=== PATIENT | female | born 1940 ===

== ENCOUNTER 2017-02-20 12:10 | Emergency (ER) | payer MEDICARE, MEDICAID ==
[2017-02-20 12:12] VITALS: BMI 25.2
[2017-02-20 12:30] VITALS: O2SAT 100
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
[2017-02-20 14:20] LABS: BASO % 0.5 % (0.0-2.0); EOS # 0.2 K/uL (0.0-0.7); EOS % 2.7 % (0.0-4.0); HEMATOCRIT 29.3 % (34.0-47.0); LYMPH # 2.8 K/uL (1.0-4.3); LYMPH % 35.3 % (20.0-40.0); MEAN CORPUSCULAR HEMOGLOBIN 29.4 pg (27.0-31.0); MEAN CORPUSCULAR HGB CONC 33.4 g/dL (33.0-37.0); MEAN PLATELET VOLUME 7.2 fL (7.2-11.7); MONO # 0.9 K/uL (0.0-0.8); MONO % 11.3 % (0.0-10.0); NRBC % 0.1 % (0.0-2.0); WHITE BLOOD COUNT 7.8 K/uL (4.8-10.8)
[2017-02-20 14:42] LABS: ALCOHOL SERUM < 10 mg/dl (0-10); CALCIUM 8.3 mg/dl (8.6-10.4); GFR AFRICAN-AMERICAN > 60; GLUCOSE,RANDOM 80 mg/dL (65-105)
[2017-02-20 14:45] LABS: ALB/GLOB RATIO 1.3 (1.0-2.1); ALKALINE PHOSPHATASE 107 U/L (38-126); ALT/SGPT < 6 U/L (9-52); AST/SGOT 34 U/L (14-36); BLOOD UREA NITROGEN 13 mg/dL (7-17); CARBON DIOXIDE 22 mmol/L (22-30); CHLORIDE 101 mmol/L (98-107); POTASSIUM 5.1 mmol/L (3.6-5.2); SODIUM 131 mmol/L (132-148); TOTAL PROTEIN 6.6 g/dL (6.3-8.3)
[2017-02-20 15:03] VITALS: BP 160/54; PULSE 63; RESP 19; TEMP 97.9
--- NOTE | 2017-02-20 15:16 | RAD ---
PROCEDURE: CHEST RADIOGRAPH, 1 VIEW HISTORY: AMS COMPARISON: None available. FINDINGS: LUNGS: Hypoventilation and large body habitus limiting evaluation. No gross consolidation. PLEURA: No pneumothorax or right pleural fluid seen. Extreme left costophrenic angle not visually included CARDIOVASCULAR: Cardiomegaly. Central pulmonary vascular mild congestion possible-chronicity unknown atherosclerotic aortic knob calcification OSSEOUS STRUCTURES: Bilateral shoulder arthrosis. Thoracic spondylosis VISUALIZED UPPER ABDOMEN: Normal. OTHER FINDINGS: Apparent left cervical level surgical clips and possible calcification -correlate clinically IMPRESSION: No pulmonary infiltrate. Cardiomegaly. Central pulmonary vascular congestion - possible
--- NOTE | 2017-02-21 23:32 | CARD ---
APPROVED REPORT EKG Measurement Heart [id number] <Conclusion> Sinus rhythm with 1st degree AV block Otherwise normal ECG
== END 2017-02-20 15:30 | disposition home or self-care (01) ==
LOC: C.ER 12:10
DX: F03.90 Unspecified dementia, unspecified severity, without behavioral disturbance, psychotic disturbance, mood disturbance, and anxiety (principal)
CPT/HCPCS: 71010; 80053; 84484; 85025; 93005; 99284; G0480

== ENCOUNTER 2017-06-05 22:14 | Inpatient (IN) | payer MEDICARE, MEDICAID ==
[2017-06-05 22:14] VITALS: BMI 25.2
--- NOTE | 2017-06-05 22:30 | C.PDOC ---
History Of Present Illness 76 y/o female brought in by ambulance for respiratory distress, however initially call was placed due to seizure activity. When EMS arrived, O2 sat was 71% on room air, and patient was placed on bipap. On arrival to the ED patient does not appear post-ictal and did not receive any treatment in the field due to no IV access. Patient currently on bipap with O2 sat at 98-99%. She is awake , alert, oriented x3 but does not recall what happened prior to EMS arriving. No obvious signs of injury or trauma. 11:20 PM pt's at bedside. States that pt has a long history of seizures and dementia. As she was watching tv, She was "arguing with someone- hallucination) and then proceeded to have a generalized tonic clonic seizure, lasting a few seconds Time Seen by Provider: 06/05/17 22:29 Chief Complaint (Nursing): Shortness Of Breath History Per: Patient, EMS History/Exam Limitations: clinical condition Onset/Duration Of Symptoms: Mins Current Symptoms Are (Timing): Still Present Initiating Event: Emotionaly Upset, Other Current Respiratory Medications: See Home Med List Severity: Severe Pain Scale Rating Of: 9 Associated Symptoms: Ankle/Leg Swelling Reports Recently: Treated By A Physician Recent travel outside of the [place]: No Additional History Per: EMS Past Medical History Reviewed: Historical Data, Nursing Documentation, Vital Signs Vital Signs: Last Vital Signs Temp 97.9 F 06/06/17 00:24 Pulse 55 L 06/06/17 00:24 Resp 18 06/06/17 00:24 BP 124/47 L 06/06/17 00:24 Pulse Ox 100 06/06/17 00:24 - Medical History PMH: CVA, Dementia, HTN, Hypothyroidism Family History: States: No Known Family Hx - Social History Hx Tobacco Use: No Hx Alcohol Use: No Hx Substance Use: No - Immunization History Hx Tetanus Toxoid Vaccination: No Hx Influenza Vaccination: No Hx Pneumococcal Vaccination: No Review Of Systems Review Of Systems: ROS cannot be obtained secondary to pt's inabilty to answer questions. Respiratory: Positive for: Other (respiratory distress) Neurological: Positive for: Seizures Physical Exam - Physical Exam Appears: In Acute Distress (respiratory distress) Skin: Warm, Dry Head: Normacephalic Eye(s): bilateral: Normal Inspection Nose: Normal Oral Mucosa: Moist Neck: Trachea Midline, No Midline Cervical Tenderness, No Paracervical Tenderness, Supple Chest: Symmetrical Cardiovascular: Rhythm Regular Respiratory: Rales (diffuse) Gastrointestinal/Abdominal: Soft, No Tenderness, No Distention Extremity: Pedal Edema (bilaterally), No Other (obvious signs of injury) Pulses: Left Dorsalis Pedis: Normal, Right Dorsalis Pedis: Normal Neurological/Psych: Oriented x3, Normal Speech ED Course And Treatment - Laboratory Results Result Diagrams: 06/05/17 22:49 06/05/17 22:49 ECG: Interpreted By Me, Viewed By Me ECG Rhythm: Sinus Rhythm (60), 1st Degree HB, Nonspecific Changes (unchanged from 02/20/17) O2 Sat by Pulse Oximetry: 99 (on bipap) Pulse Ox Interpretation: Normal - Radiology CXR: Interpreted by Me, Viewed By Me Progress Note: Ordered labs, EKG and CXR. Patient given 40 mg IV Lasix. Critical Care Time - Critical Care Note Total Time (in mins): 30 Documented critical care: time excludes all time spent performing seperately billable procedures. Disposition Discussed With DrStephani: Agustín Chu Comment: accepted the pt on his service and took over the care at 1AM Doctor Will See Patient In The: Hospital Counseled Patient/Family Regarding: Studies Performed, Diagnosis - Disposition Disposition: HOSPITALIZED Disposition Time: 22:29 Condition: FAIR Forms: [facility] ([place]) - POA Present On Arrival: Poor Glycemic Control - Clinical Impression Clinical Impression: Dyspnea, Respiratory distress, Dementia, Seizure - Scribe Statement The provider has reviewed the documentation as recorded by the Scribe (Hayley Chilel) Provider Attestation: All medical record entries made by the Scribe were at my direction and personally dictated by me. I have reviewed the chart and agree that the record accurately reflects my personal performance of the history, physical exam, medical decision making, and the department course for this patient. I have also personally directed, reviewed, and agree with the discharge instructions and disposition. Decision To Admit - Pt Status Changed To: Hospital Disposition Of: Inpatient - Admit Certification Admit to Inpatient:: After my assessment, the patient will require hospitalization for at least two midnights. This is because of the severity of symptoms shown, intensity of services needed, and/or the medical risk in this patient being treated as an outpatient. - InPatient: Physician Admission Certification: I certify that this patient requires 2 or more midnights of care for the following reason:: After my assessment, the patient will require hospitalization for at least two midnights. This is because of the severity of symptoms shown, intensity of services needed, and/or the medical risk in this patient being treated as an outpatient. - . Bed Request Type: Telemetry Admitting Physician: Agustín Chu Patient Diagnosis: Dyspnea, Respiratory distress, Dementia, Seizure
[2017-06-05 22:58] LABS: BASO % 0.3 % (0.0-2.0); EOS # 0.3 K/uL (0.0-0.7); EOS % 4.7 % (0.0-4.0); LYMPH # 1.9 K/uL (1.0-4.3); LYMPH % 26.7 % (20.0-40.0); MEAN CORPUSCULAR HEMOGLOBIN 27.9 pg (27.0-31.0); MEAN CORPUSCULAR HGB CONC 32.9 g/dL (33.0-37.0); MEAN PLATELET VOLUME 7.5 fL (7.2-11.7); MONO # 0.7 K/uL (0.0-0.8); MONO % 9.7 % (0.0-10.0); NEUT # 4.2 K/uL (1.8-7.0); NEUT % 58.6 % (50.0-75.0); RBC 3.24 Mil/uL (3.80-5.20); RED CELL DISTRIBUTION WIDTH 18.8 % (11.5-14.5); WHITE BLOOD COUNT 7.2 K/uL (4.8-10.8)
[2017-06-05 22:59] LABS: MEAN CELL VOLUME 84.8 fL (81.0-99.0)
[2017-06-05 23:02] LABS: ABG ALLEN TEST POS; ARTERIAL BLOOD GAS HCO3 26.2 mmol/L (21-28); ARTERIAL BLOOD GAS O2 SAT 99.4 % (95-98); ARTERIAL BLOOD GAS PCO2 49 mm/Hg (35-45); ARTERIAL BLOOD GAS PH 7.36 (7.35-7.45); ARTERIAL BLOOD GAS PO2 172 mm/Hg (80-100); ARTERIAL BLOOD GAS TCO2 29.2 mmol/L (22-28)
[2017-06-05 23:02] LABS: PROTHROMBIN TIME 11.3 SECONDS (9.7-12.2)
[2017-06-05 23:04] LABS: ALB/GLOB RATIO 1.2 (1.0-2.1); ALBUMIN 3.9 g/dL (3.5-5.0); ALT/SGPT 14 U/L (9-52); AST/SGOT 16 U/L (14-36); BLOOD UREA NITROGEN 14 mg/dL (7-17); CALCIUM 8.8 mg/dl (8.6-10.4); GFR AFRICAN-AMERICAN 53; GFR NON-AFRICAN AMERICAN 43
[2017-06-05 23:15] LABS: B-TYPE NATRIURETIC PEPTIDE 1080 pg/mL (0-900)
[2017-06-05 23:25] LABS: URINE BACTERIA RARE (<OCC); URINE BILIRUBIN NEGATIVE (NEGATIVE); URINE CLARITY Clear (Clear); URINE COLOR Yellow (YELLOW); URINE GLUCOSE (UA) NORMAL (Normal); URINE LEUKOCYTE ESTERASE NEG Leu/uL (Negative); URINE PROTEIN NEGATIVE (NEGATIVE); URINE UROBILINOGEN NORMAL mg/dL (0.2-1.0)
[2017-06-05 23:28] LABS: URINE BLOOD TRACE (NEGATIVE)
[2017-06-06] MEDS: Levothyroxine 75 MCG TAB PO SCH (05:34)
[2017-06-06 08:05] LABS: HEMOGLOBIN 8.6 g/dL (11.0-16.0); MEAN CELL VOLUME 83.8 fL (81.0-99.0); MEAN CORPUSCULAR HEMOGLOBIN 28.3 pg (27.0-31.0); MEAN CORPUSCULAR HGB CONC 33.7 g/dL (33.0-37.0); MEAN PLATELET VOLUME 7.6 fL (7.2-11.7); RBC 3.04 Mil/uL (3.80-5.20); WHITE BLOOD COUNT 9.1 K/uL (4.8-10.8)
--- NOTE | 2017-06-06 08:15 | RAD ---
Chest x-ray single frontal view History: Shortness of breath. Comparison: 02/20/2017 Findings: Mild venous congestion. Patchy bibasilar airspace opacities. Few scattered nodular densities in the mid to lower lung zones bilaterally. Cardiomegaly. Tortuous aorta. Calcification at the aortic knob. Degenerative changes in the spine and shoulders. Impression: Mild venous congestion. Patchy bibasilar airspace opacities. Few scattered nodular densities in the mid to lower lung zones bilaterally. Cardiomegaly. Tortuous aorta. Calcification at the aortic knob.
[2017-06-06 08:39] LABS: ALB/GLOB RATIO 1.1 (1.0-2.1); ALBUMIN 3.5 g/dL (3.5-5.0); CALCIUM 8.4 mg/dl (8.6-10.4)
[2017-06-06] MEDS: Pantoprazole 40 mg EC Tab PO SCH (09:49)
[2017-06-06] MEDS: Metoprolol Succinate 25 mg XL Tab PO SCH (09:49)
[2017-06-06] MEDS ORDERED: Losartan 12.5 MG TAB PO SCH (10:00)
[2017-06-06] MEDS ORDERED: QUEtiapine 12.5 MG TAB PO SCH (10:00)
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
--- NOTE | 2017-06-06 16:09 | CP.PCM.PN ---
Subjective - Date & Time of Evaluation Date of Evaluation: 06/06/17 Time of Evaluation: 13:00 Objective - Vital Signs/Intake and Output Vital Signs (last 24 hours): Temp Pulse Resp BP Pulse Ox 98.4 F 56 L 20 124/51 L 99 06/06/17 12:40 06/06/17 12:53 06/06/17 12:40 06/06/17 12:40 06/06/17 12:53 Intake and Output: 06/06/17 06/06/17 06:59 18:59 Intake Total 180 Output Total 1100 2600 Balance -1100 -2420 - Medications Medications: Current Medications Aspirin (Ecotrin) 81 mg PO DAILY [facility] Last Admin: 06/06/17 09:49 Dose: 81 mg Docusate Sodium (Colace) 100 mg PO BID [facility] Last Admin: 06/06/17 09:48 Dose: 100 mg Donepezil HCl (Aricept) 5 mg PO HS [facility] Furosemide (Lasix) 40 mg IVP DAILY [facility] Last Admin: 06/06/17 09:49 Dose: 40 mg Metronidazole (Flagyl) 500 mg in 100 mls @ 100 mls/hr IVPB Q8 [facility] PRN Reason: Protocol Ceftriaxone Sodium 1 gm/ (Sodium Chloride) 100 mls @ 100 mls/hr IVPB DAILY [facility] PRN Reason: Protocol Lamotrigine (Lamictal) 100 mg PO BID [facility] Last Admin: 06/06/17 09:49 Dose: 100 mg Levetiracetam (Keppra) 1,500 mg PO BID [facility] Last Admin: 06/06/17 09:49 Dose: 1,500 mg Levothyroxine Sodium (Synthroid) 75 mcg PO 0630 [facility] Last Admin: 06/06/17 05:34 Dose: 75 mcg Lorazepam (Ativan) 1 mg PO BID PRN PRN Reason: Anxiety Lorazepam (Ativan) 1 mg PO HS [facility] Losartan Potassium (Cozaar) 25 mg PO DAILY [facility] Last Admin: 06/06/17 11:23 Dose: 25 mg Metoprolol Succinate (Toprol Xl) 25 mg PO DAILY [facility] Last Admin: 06/06/17 09:49 Dose: 25 mg Pantoprazole Sodium (Protonix Ec Tab) 40 mg PO DAILY [facility] Last Admin: 06/06/17 09:49 Dose: 40 mg Paroxetine HCl (Paxil) 30 mg PO DAILY [facility] Last Admin: 06/06/17 09:45 Dose: 30 mg Quetiapine Fumarate (Seroquel) 25 mg PO Q12 [facility] Last Admin: 06/06/17 09:52 Dose: 25 mg Rosuvastatin Calcium (Crestor) 20 mg PO HS [facility] - Labs Labs: 06/06/17 07:55 06/06/17 07:55 PT 11.3 SECONDS (9.7-12.2) 06/05/17 22:49 INR 1.0 06/05/17 22:49 APTT 26 SECONDS (21-34) 06/05/17 22:49
[2017-06-06] MEDS: metroNIDAZOLE IV 500 mg/100 ml 500 MG/100 ML BAG IVPB SCH ×2 (17:40→21:53)
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
--- NOTE | 2017-06-07 00:45 | CON ---
DATE: CHIEF COMPLAINT AND REASON FOR CONSULTATION: The patient referred by Dr. Chu for evaluation and co-management. The patient has been complaining of anxiety, persistent visual hallucination, and insomnia. As reported by her of 50 years, the patient seems to be talking to somebody else. She is reported to be seeing her relatives, her mother and brother. HISTORY OF PRESENT ILLNESS: The patient is a 76-year-old female with history of dementia and seizure as well as recent CVA. The patient was groaning, respiratory distress. The patient was referred for evaluation as the patient has been having persistent visual hallucination, anxiety, and also history of seizures. On review of the chart, the patient was at [facility] before coming for subacute rehab recently and was taking some psych medications. According to the , the patient used to have one or two times a week of having these episodes and slight hallucinations, but the patient has been having it almost daily. The patient gets very restless at night fighting with and said he cannot sleep. She seems to be arguing with somebody, responding to internal stimuli. According to the , the patient is seeing her mother and brother and arguing with them. She has history of seizures. The patient is taking also Keppra 1500 mg twice a day and Lamictal for seizures, but the patient according to the without these high doses, she will have seizures. The patient is also on Seroquel for psychosis. PAST PSYCH HISTORY: History of dementia. PAST MEDICAL HISTORY: History of CVA, history of seizures, respiratory distress, dementia. DRUG AND ALCOHOL HISTORY: Denies any. ALLERGIES: NO KNOWN ALLERGIES. SOCIAL HISTORY: The patient lives with her for more than 50 years. LIST OF CURRENT MEDICATIONS: Aricept 5 mg daily. The patient was given 1 dose of Ativan. Colace, Cozaar, Crestor, Keppra 1500 mg twice a day, Lamictal 100 mg daily, Paxil 30 mg daily. The patient is on Seroquel 25 mg every 12 hours as well as metoprolol, Synthroid, and also Lasix. VITAL SIGNS: Temperature is 98.4, pulse rate 56, blood pressure is 124/51, respirations 20, oxygen saturation is 99%. REVIEW OF SYSTEMS: GENERAL: The patient is alert, verbal, irritable. She was fighting with her , anxious. She was given earlier Ativan. SKIN: No diaphoresis. HEENT: No headache or dizziness. NECK: Supple. RESPIRATORY: No dyspnea. CARDIOVASCULAR: No chest pain. GASTROINTESTINAL: No nausea or vomiting. EXTREMITIES: Moving extremities. MUSCULOSKELETAL: Feels weak. NEUROLOGIC: Alert with periods of confusion. GENITOURINARY: No dysuria. MENTAL STATUS EXAMINATION: An elderly female who looks stated age, who is about 5 feet 2 inches, weight is 157 pounds. Mood is irritable, anxious . Affect is reactive. Speech is spontaneous. Thought process, confused often. Thought content, has persistent visual hallucinations, seeing relatives, especially brother and mother and arguing with them. She is responding to internal stimuli. No suicidal or homicidal ideation. Attention and memory seem to be limited. Insight and judgment limited. Impulse control is guarded at this time. LABORATORY DATA: On review of her labs, the patient had an ABG done, oxygen saturation is 99.4, which is normal. BUN 18, creatinine is 1.1. potassium is 3.8, sodium is 142. TSH is 2.66. Folate is 14, B12 is 838. UA is basically negative. IMPRESSION: Dementia with psychosis with possible delirium, metabolic encephalopathy as well as history of seizures, dyspnea, respiratory distress, and cerebrovascular accident. PLAN AND RECOMMENDATION: The patient is seen, medications reviewed. Discussed with the patient and to readjust her meds. We will change the Aricept to 5 mg at bedtime. We have Ativan 1 mg p.o. b.i.d. p.r.n. for agitation. We will give one standing dose at night if she becomes restless at night. We will continue the Keppra 200 mg p.o. b.i.d. Also, Keppra can cause psychosis at high doses, especially it might exacerbate her dementia, the patient still has dementia. Continue Lamictal 100 mg p.o. b.i.d. Continue Paxil 30 mg daily and continue the Seroquel 25 mg every 12 hours for psychosis. We will monitor the patient's mental status. Continue treatment plan as outlined. Also, we are going to order a prolactin level. If the patient had seizure, her prolactin levels will be elevated. The rest of her labs are within normal limits. Mychal Huddleston MD [place] # [id number] [place]
--- NOTE | 2017-06-07 03:17 | CON ---
DATE: CARDIOLOGY CONSULT REASON FOR CONSULTATION: Shortness of breath. HISTORY OF PRESENT ILLNESS: The patient is a 76-year-old female who has history of seizure activity and history of dementia who was brought in by ambulance because of respiratory distress. The patient does not give any reliable information. The at the bedside, gives some information, but detailed medical history is not completely available as the patient was always admitted to [facility]. According to the , he saw his sitting on the couch having seizures with shortness of breath at the same time that lasted few minutes. There was no reported chest pain. According to the , the patient had no history of heart attack in the past. SOCIAL HISTORY: Nonsmoker. Nondrinker. She lives with her . MEDICATIONS: Aricept 5 mg at bedtime, Ativan 1 mg twice a day, Rocephin 1 gm intravenously daily, Colace 100 mg twice a day, Cozaar 25 mg daily, Crestor 20 mg once a day, aspirin 81 mg once a day, intravenous Flagyl 500 mg every 8 hours, Keppra 1.5 gm p.o. twice a day, Lamictal 100 mg p.o. twice a day, Lasix 40 mg intravenously daily, Paxil 30 mg once a day, Synthroid 75 mcg once a day, Seroquel 25 mg twice a day, Toprol XL 25 mg once a day. REVIEW OF SYSTEMS: No reported fall according to the . No reported tongue biting or urinary incontinence. No reported fever or chills. PHYSICAL EXAMINATION: GENERAL: The patient is an elderly female who does not appear to be in any distress. VITAL SIGNS: Blood pressure 124/51, heart rate 56, temperature 98.4, respirations 20. HEENT: Pale conjunctivae. CHEST: Diminished breath sounds bilaterally. HEART: S1 and S2 regular. ABDOMEN: Soft. EXTREMITIES: No edema. LABORATORY DATA: Today's SMA-7, sodium 142, potassium 3.8, chloride 97, CO2 of 29, glucose 85, BUN 18, creatinine 1.1. Pro-BNP is 1080. TSH level is 2.66. One set of troponin is negative. PT, PTT, and INR are within normal limits. Hemoglobin and hematocrit 8.6 and 25.5. White count and platelet count are within normal limits. Chest x-ray was unremarkable. EKG revealed sinus rhythm AV block. ASSESSMENT: 1, Witness seizure activity. 2. Rule out congestive heart failure. 3. Hypertension. 4. Anemia. RECOMMENDATIONS: Continue current p.r.n. oral Ativan for anxiety. Continue Crestor 20 mg once a day, Cozaar 25 mg once a day, Keppra at 1.5 gm p.o. twice a day, Lasix 40 mg intravenously once a day, Synthroid 75 mcg once a day. Obtain an echocardiogram as well as repeat EKG study. Viraj Dinero MD
[2017-06-07] MEDS: metroNIDAZOLE IV 500 mg/100 ml 500 MG/100 ML BAG IVPB SCH ×3 (06:11→21:20)
[2017-06-07] MEDS: Levothyroxine 75 MCG TAB PO SCH (06:11)
[2017-06-07] MEDS: Pantoprazole 40 mg EC Tab PO SCH (09:04)
[2017-06-07] MEDS: Metoprolol Succinate 25 mg XL Tab PO SCH (09:04)
--- NOTE | 2017-06-07 16:51 | CP.PCM.PN ---
Subjective - Date & Time of Evaluation Date of Evaluation: 06/07/17 Time of Evaluation: 09:00 - Subjective Subjective: Patient seen and examined at bedside. Patient's breathing is improved and she is now off BiPAP. notes that the patient may have trouble swallowing liquids and that a thickened diet was recommended previously at [facility]. Patient remains afebrile. Assessment and Plan: 1. Hypoxic respiratory failure - patient off BiPAP and breathing much improved - CXR /3: few patchy bibasilar airspace nodular densities, mild venous congestion, cardiomegaly - procalcitonin 06/06: <0.05 - BiPAP at night 2. Suspicion of aspiration pneumonia - CXR 4/3: few patchy bibasilar airspace nodular densities - PT/OT swallow evaluation - consider nectar thickened liquids Objective - Vital Signs/Intake and Output Vital Signs (last 24 hours): Temp Pulse Resp BP Pulse Ox 98.3 F 58 L 20 105/51 L 99 06/07/17 16:04 06/07/17 16:04 06/07/17 16:04 06/07/17 16:04 06/07/17 16:04 Intake and Output: 06/07/17 06/07/17 06:59 18:59 Intake Total 380 Output Total 700 1100 Balance -700 -720 - Medications Medications: Current Medications Aspirin (Ecotrin) 81 mg PO DAILY [facility] Last Admin: 06/07/17 09:04 Dose: 81 mg Docusate Sodium (Colace) 100 mg PO BID [facility] Last Admin: 06/07/17 09:04 Dose: 100 mg Donepezil HCl (Aricept) 5 mg PO [facility] Furosemide (Lasix) 40 mg IVP DAILY [facility] Last Admin: 06/07/17 09:00 Dose: 40 mg Metronidazole (Flagyl) 500 mg in 100 mls @ 100 mls/hr IVPB Q8 [facility]OEY PRN Reason: Protocol Last Admin: 06/07/17 13:26 Dose: 100 mls/hr Ceftriaxone Sodium 1 gm/ (Sodium Chloride) 100 mls @ 100 mls/hr IVPB DAILY [facility]OE[facility] PRN Reason: Protocol Last Admin: 06/07/17 09:04 Dose: 100 mls/hr Lamotrigine (Lamictal) 100 mg PO BID [facility] Last Admin: 06/07/17 09:04 Dose: 100 mg Levetiracetam (Keppra) 1,500 mg PO BID [facility] Last Admin: 06/07/17 09:04 Dose: 1,500 mg Levothyroxine Sodium (Synthroid) 75 mcg PO 0630 [facility] Last Admin: 06/07/17 06:11 Dose: 75 mcg Lorazepam (Ativan) 1 mg PO BID PRN PRN Reason: Anxiety Last Admin: 06/07/17 09:04 Dose: 1 mg Lorazepam (Ativan) 1 mg PO HS [facility] Last Admin: 06/06/17 21:55 Dose: 1 mg Losartan Potassium (Cozaar) 25 mg PO DAILY [facility] Last Admin: 06/07/17 09:04 Dose: 25 mg Pantoprazole Sodium (Protonix Ec Tab) 40 mg PO DAILY [facility] Last Admin: 06/07/17 09:04 Dose: 40 mg Paroxetine HCl (Paxil) 30 mg PO DAILY [facility] Last Admin: 06/07/17 09:04 Dose: 30 mg Quetiapine Fumarate (Seroquel) 25 mg PO Q12 [facility] Last Admin: 06/07/17 09:04 Dose: 25 mg Rosuvastatin Calcium (Crestor) 20 mg PO HS [facility] Last Admin: 06/06/17 21:53 Dose: 20 mg - Labs Labs: 06/06/17 07:55 06/06/17 07:55 PT 11.3 SECONDS (9.7-12.2) 06/05/17 22:49 INR 1.0 06/05/17 22:49 APTT 26 SECONDS (21-34) 06/05/17 22:49 Assessment and Plan (1) Dyspnea Status: Acute (2) Respiratory distress Status: Acute (3) Seizure Status: Acute
--- NOTE | 2017-06-07 19:24 | PN ---
DATE: SUBJECTIVE: The patient denies any chest pain. No reports of seizure activity. The patient sits upon a chair with the at the bedside. PHYSICAL EXAMINATION VITAL SIGNS: Blood pressure 149/64, heart rate 60, temperature 97.8, respirations 20. HEENT: Normocephalic. CHEST: Clear. HEART: S1 and S2 regular. EXTREMITIES: No edema. LABORATORY DATA: Today's blood sugar is 85. ASSESSMENT: 1. Seizure activity. 2. Congestive heart failure. 3. Hypertension. 4. Anemia. 5. Sinus bradycardia with prolonged QT interval. RECOMMENDATIONS: 1. Continue Coreg 25 mg once a day. 2. Aspirin 81 mg once a day. 3. Keppra 1.5 gm p.o. twice a day. 4. Lamictal 100 mg twice a day. 5. Pepcid 30 mg once daily. 6. Lasix 20 mg once a day. 6. Discontinue Toprol XL. Repeat 12-lead EKG. We will follow. Cardiac study was performed today. Viraj Dinero MD
--- NOTE | 2017-06-07 23:14 | CP.PCM.PN ---
Subjective - Date & Time of Evaluation Date of Evaluation: 06/07/17 Time of Evaluation: 17:30 - Subjective Subjective: Patient seen and examined at bedside. Patient's breathing is improved and she is now off BiPAP. notes that the patient may have trouble swallowing liquids and that a thickened diet was recommended previously at [facility]. Patient remains afebrile. Objective - Vital Signs/Intake and Output Vital Signs (last 24 hours): Temp Pulse Resp BP Pulse Ox 98.3 F 58 L 20 105/51 L 99 06/07/17 16:04 06/07/17 16:04 06/07/17 16:04 06/07/17 16:04 06/07/17 16:04 Intake and Output: 06/07/17 06/08/17 18:59 06:59 Intake Total 380 Output Total 1100 Balance -720 - Medications Medications: Current Medications Aspirin (Ecotrin) 81 mg PO DAILY [facility] Last Admin: 06/07/17 09:04 Dose: 81 mg Docusate Sodium (Colace) 100 mg PO BID [facility] Last Admin: 06/07/17 17:24 Dose: 100 mg Donepezil HCl (Aricept) 5 mg PO HS [facility] Last Admin: 06/07/17 21:16 Dose: 5 mg Furosemide (Lasix) 40 mg IVP DAILY [facility] Last Admin: 06/07/17 09:00 Dose: 40 mg Metronidazole (Flagyl) 500 mg in 100 mls @ 100 mls/hr IVPB Q8 ZOEY PRN Reason: Protocol Last Admin: 06/07/17 21:20 Dose: 100 mls/hr Ceftriaxone Sodium 1 gm/ (Sodium Chloride) 100 mls @ 100 mls/hr IVPB DAILY [facility] PRN Reason: Protocol Last Admin: 06/07/17 09:04 Dose: 100 mls/hr Lamotrigine (Lamictal) 100 mg PO BID [facility] Last Admin: 06/07/17 17:24 Dose: 100 mg Levetiracetam (Keppra) 1,500 mg PO BID [facility] Last Admin: 06/07/17 17:24 Dose: 1,500 mg Levothyroxine Sodium (Synthroid) 75 mcg PO 0630 [facility] Last Admin: 06/07/17 06:11 Dose: 75 mcg Lorazepam (Ativan) 1 mg PO BID PRN PRN Reason: Anxiety Last Admin: 06/07/17 09:04 Dose: 1 mg Lorazepam (Ativan) 1 mg PO HS [facility] Last Admin: 06/07/17 21:18 Dose: 1 mg Losartan Potassium (Cozaar) 25 mg PO DAILY [facility] Last Admin: 06/07/17 09:04 Dose: 25 mg Pantoprazole Sodium (Protonix Ec Tab) 40 mg PO DAILY [facility] Last Admin: 06/07/17 09:04 Dose: 40 mg Paroxetine HCl (Paxil) 30 mg PO DAILY [facility] Last Admin: 06/07/17 09:04 Dose: 30 mg Quetiapine Fumarate (Seroquel) 25 mg PO DAILY [facility] Quetiapine Fumarate (Seroquel) 50 mg PO HS [facility] Last Admin: 06/07/17 21:15 Dose: 50 mg Rosuvastatin Calcium (Crestor) 20 mg PO [facility] Last Admin: 06/07/17 21:15 Dose: 20 mg - Labs Labs: 06/06/17 07:55 06/06/17 07:55 PT 11.3 SECONDS (9.7-12.2) 06/05/17 22:49 INR 1.0 06/05/17 22:49 APTT 26 SECONDS (21-34) 06/05/17 22:49 - Constitutional Appears: No Acute Distress, Chronically Ill - Eye Exam Eye Exam: EOMI, Normal appearance, PERRL Pupil Exam: NORMAL ACCOMODATION, PERRL - Respiratory Exam Respiratory Exam: Clear to Ausculation Bilateral, NORMAL BREATHING PATTERN - Cardiovascular Exam Cardiovascular Exam: REGULAR RHYTHM, +S1, +S2. absent: Murmur - GI/Abdominal Exam GI & Abdominal Exam: Soft, Normal Bowel Sounds. absent: Tenderness - Rectal Exam Rectal Exam: Deferred Assessment and Plan (1) Dementia Status: Acute (2) Dyspnea Status: Acute (3) Respiratory distress Assessment & Plan: Assessment and Plan: 1. Hypoxic respiratory failure - patient off BiPAP and breathing much improved - CXR /3: few patchy bibasilar airspace nodular densities, mild venous congestion, cardiomegaly - procalcitonin 06/06: <0.05 - BiPAP at night 2. Suspicion of aspiration pneumonia - CXR /3: few patchy bibasilar airspace nodular densities - PT/OT swallow evaluation - consider nectar thickened liquids Status: Acute (4) Seizure Status: Acute
--- NOTE | 2017-06-08 00:39 | PN ---
DATE: SUBJECTIVE: The patient was seen. The patient has bouts of anxiety and agitation, continues to have visual hallucination. The patient states she saw her friend, Yung, as well as has seen her brother and mother. The patient seems to be responding to internal stimuli. The patient also did not sleep well at night, was agitated, was fighting with her . The patient uses multiple meds. Psych natarajan, Aricept, Ativan, Lamictal, Seroquel. Review of her labs, the patient's liver function tests are within normal limits. The patient had prolactin level ordered but still pending. Note, the patient is on high doses of Keppra 1500 twice a day, and in certain cases, high doses of Keppra can exacerbate psychosis, especially when patient is demented. We will try to see if the patient could be reevaluated again by Neurology, and reevaluate the patient's meds. The patient's insisted the patient is taking these meds to prevent seizure, however, the patient is having increasing psychotic symptoms which could be related to high dose of Keppra. The patient is also on Lamictal 100 mg b.i.d. REVIEW OF SYSTEMS: GENERAL: The patient is alert but still restless, seen in her room. SKIN: No diaphoresis. HEENT: No headache, no dizziness. NECK: Supple. RESPIRATORY: No dyspnea. CARDIOVASCULAR: No chest pain. GASTROINTESTINAL: The patient is eating with assistance. EXTREMITIES: Moving extremities. MUSCULOSKELETAL: Feels weak. NEURO: Alert with periods of confusion. GENITOURINARY: No dysuria. MENTAL STATUS EXAMINATION: Elderly female, who looks stated age, oriented x3, still has periods of confusion, is very anxious. Speech is spontaneous. Thought process forgetful. Thought content, the patient continues to have persistent visual hallucinations, seeing people and some relatives. She seems to be arguing with them, talking, responding to internal stimuli. No paranoia. No suicidal ideation. Attention and memory seem to be limited. Insight and judgment limited. Impulse control is guarded at this time. IMPRESSION: History of dementia as well as delirium, metabolic encephalopathy, history of seizure, stated history of dementia, psychosis, respiratory distress, cerebrovascular accident. PLAN AND RECOMMENDATION: The patient is seen, meds reviewed. Continue Ativan as ordered. Continue the Aricept at bedtime. We will change the Seroquel to 25 in the morning and 50 at bedtime and also continue the Paxil 30 mg daily. We will try to reconsult with Neurology concerning reevaluation of the patient's medication, especially the high doses of Keppra causing the hallucination. Mychal Huddleston MD MTDD
[2017-06-08] MEDS: Levothyroxine 75 MCG TAB PO SCH (05:51)
[2017-06-08] MEDS: metroNIDAZOLE IV 500 mg/100 ml 500 MG/100 ML BAG IVPB SCH ×3 (05:52→21:14)
--- NOTE | 2017-06-08 07:33 | CARD ---
APPROVED REPORT EXAM: Two-dimensional and M-mode echocardiogram with Doppler and color Doppler. Other Information Quality : GoodRhythm : INDICATION CVA/TIA Dyspnea Congestive Heart Failure RISK FACTORS Hypertension 2D DIMENSIONS IVSd1.3 (0.7-1.1cm)LVDd4.5 (3.9-5.9cm) PWd1.0 (0.7-1.1cm)LVDs2.6 (2.5-4.0cm) FS (%) 42.3 %LVEF (%)73.5 (>50%) M-Mode DIMENSIONS Left Atrium (MM)4.21 (2.5-4.0cm)IVSd1.02 (0.7-1.1cm) Aortic Root2.71 (2.2-3.7cm)LVDd5.15 (4.0-5.6cm) Aortic Cusp Exc.1.96 (1.5-2.0cm)PWd0.89 (0.7-1.1cm) FS (%) 39 %LVDs3.14 (2.0-3.8cm) LVEF (%)69 (>50%) Aortic Valve AI P 1/2 [id number] Mitral Valve MV E Lqsjabyk27.9cm/sMV A Jbivhxuo433.0cm/sE/A ratio0.8 TDI E/Lateral E'0.0E/Medial E'0.0 Tricuspid Valve TR Peak [id number]/sTR Peak Gr.[id number] LEFT VENTRICLE The left ventricle is normal size. There is normal left ventricular wall thickness. The left ventricular function is normal. The left ventricular ejection fraction is within the normal range. There is normal LV segmental wall motion. Transmitral Doppler flow pattern is abnormal. RIGHT VENTRICLE The right ventricle is normal size. ATRIA The left atrium is mildly dilated. The right atrium size is normal. AORTIC VALVE There is mild aortic regurgitation. MITRAL VALVE Mitral regurgitation is mild. TRICUSPID VALVE There is mild tricuspid regurgitation. <Conclusion> Normal LV systolic function. Diastolic dysfunction. Midly dilated LA. Mild MR. Mild TR. Mild AR.
[2017-06-08 07:36] LABS: BASO % 0.4 % (0.0-2.0); EOS # 0.4 K/uL (0.0-0.7); EOS % 5.4 % (0.0-4.0); HEMOGLOBIN 9.3 g/dL (11.0-16.0); LYMPH # 2.1 K/uL (1.0-4.3); LYMPH % 26.9 % (20.0-40.0); MEAN CELL VOLUME 83.7 fL (81.0-99.0); MEAN CORPUSCULAR HEMOGLOBIN 28.2 pg (27.0-31.0); MEAN CORPUSCULAR HGB CONC 33.7 g/dL (33.0-37.0); MEAN PLATELET VOLUME 7.6 fL (7.2-11.7); MONO # 0.8 K/uL (0.0-0.8); MONO % 10.4 % (0.0-10.0); NEUT # 4.4 K/uL (1.8-7.0); NEUT % 56.9 % (50.0-75.0); NRBC % 0.1 % (0.0-2.0); RBC 3.31 Mil/uL (3.80-5.20); RED CELL DISTRIBUTION WIDTH 18.6 % (11.5-14.5); WHITE BLOOD COUNT 7.8 K/uL (4.8-10.8)
[2017-06-08 07:48] LABS: ALB/GLOB RATIO 1.2 (1.0-2.1); ALBUMIN 3.6 g/dL (3.5-5.0); ALT/SGPT 21 U/L (9-52); AST/SGOT 44 U/L (14-36); BLOOD UREA NITROGEN 21 mg/dL (7-17); CALCIUM 8.2 mg/dl (8.6-10.4); GFR AFRICAN-AMERICAN > 60; GFR NON-AFRICAN AMERICAN 54
--- NOTE | 2017-06-08 07:50 | CARD ---
APPROVED REPORT EKG Measurement Heart [id number] <Conclusion> Sinus bradycardia with 1st degree AV block Prolonged QT Abnormal ECG
[2017-06-08] MEDS: Pantoprazole 40 mg EC Tab PO SCH (10:33)
--- NOTE | 2017-06-08 10:44 | CARD ---
APPROVED REPORT EKG Measurement Heart [id number] [place] [id number] [id number] <Conclusion> Sinus rhythm with 1st degree AV block Otherwise normal ECG
--- NOTE | 2017-06-08 13:53 | CP.PCM.CON ---
History of Present Illness - History of Present Illness History of Present Illness: 76 yr old woman with a history of epilepsy and dementia, who came to the hospital with several seizures, and is now stable, having been laoded with antiepileptic medications. Miss Mcleod says that she does not have an aura, but rather has generalized seizures and was brought to the ambulance for respiratory distress. As per chart: Per , patient was watching tv and possibly hallucinating before having a generalized tonic clonic seizure of a few seconds. Patient was saturating at 71% on room air in the field and was placed on bipap. In the ED, patient was not post-ictal and on bipap saturating at 98-99%. Patient was resting with BiPAP, and her provided most of the history. Her reports that the patient had a "needle" placed her in neck and he noticed that it was displaced before the patient's seizure-like episode. PMHx: dementia, seizures, hypothyroid, HTN Allergies: NKDA SH: Lives with on exam: Patient knows where she is and her name but is not oriented to place or time. EOMI. no facial droop. Rest of neuro exam is normal. Past Patient History - Past Medical History & Family History Past Medical History?: Yes - Past Social History Smoking Status: Never Smoked - CARDIAC Hx Hypertension: Yes - NEUROLOGICAL HX Cerebrovascular Accident: Yes - ENDOCRINE/METABOLIC Hx Hypothyroidism: Yes - PSYCHIATRIC Hx Substance Use: No Meds Allergies/Adverse Reactions: Allergies Allergy/AdvReac Type Severity Reaction Status Date / Time No Known Allergies Allergy Verified 06/05/17 22:20 - Medications Medications: Current Medications Aspirin (Ecotrin) 81 mg PO DAILY [facility] Last Admin: 06/08/17 10:32 Dose: 81 mg Docusate Sodium (Colace) 100 mg PO BID [facility] Last Admin: 06/08/17 10:33 Dose: 100 mg Donepezil HCl (Aricept) 5 mg PO HS [facility] Last Admin: 06/07/17 21:16 Dose: 5 mg Furosemide (Lasix) 40 mg IVP DAILY [facility] Last Admin: 06/08/17 10:33 Dose: 40 mg Metronidazole (Flagyl) 500 mg in 100 mls @ 100 mls/hr IVPB Q8 [facility] PRN Reason: Protocol Last Admin: 06/08/17 05:52 Dose: 100 mls/hr Ceftriaxone Sodium 1 gm/ (Sodium Chloride) 100 mls @ 100 mls/hr IVPB DAILY [facility] PRN Reason: Protocol Last Admin: 06/08/17 10:31 Dose: 100 mls/hr Lamotrigine (Lamictal) 100 mg PO BID [facility] Last Admin: 06/08/17 10:32 Dose: 100 mg Levetiracetam (Keppra) 1,500 mg PO BID [facility] Last Admin: 06/08/17 10:32 Dose: 1,500 mg Levothyroxine Sodium (Synthroid) 75 mcg PO 0630 [facility] Last Admin: 06/08/17 05:51 Dose: 75 mcg Lorazepam (Ativan) 1 mg PO BID PRN PRN Reason: Anxiety Last Admin: 06/08/17 11:14 Dose: 1 mg Lorazepam (Ativan) 1 mg PO HS [facility] Last Admin: 06/07/17 21:18 Dose: 1 mg Losartan Potassium (Cozaar) 25 mg PO DAILY [facility] Last Admin: 06/08/17 10:33 Dose: 25 mg Pantoprazole Sodium (Protonix Ec Tab) 40 mg PO DAILY [facility] Last Admin: 06/08/17 10:33 Dose: 40 mg Paroxetine HCl (Paxil) 30 mg PO DAILY [facility] Last Admin: 06/08/17 10:34 Dose: 30 mg Quetiapine Fumarate (Seroquel) 25 mg PO DAILY [facility] Last Admin: 06/08/17 10:34 Dose: 25 mg Quetiapine Fumarate (Seroquel) 50 mg PO HS [facility] Last Admin: 06/07/17 21:15 Dose: 50 mg Rosuvastatin Calcium (Crestor) 20 mg PO HS [facility] Last Admin: 06/07/17 21:15 Dose: 20 mg Results - Vital Signs Recent Vital Signs: Last Vital Signs Temp 97.8 F 06/08/17 07:24 Pulse 62 06/08/17 07:24 Resp 20 06/08/17 07:24 BP 147/75 06/08/17 10:33 Pulse Ox 100 06/08/17 07:24 - Labs Result Diagrams: 06/10/17 07:38 06/10/17 07:38 Labs: Laboratory Results - last 24 hr 06/08/17 06/08/17 07:23 07:23 WBC 7.8 RBC 3.31 L Hgb 9.3 L Hct 27.7 L MCV 83.7 MCH 28.2 MCHC 33.7 RDW 18.6 H Plt Count 227 MPV 7.6 Neut % (Auto) 56.9 Lymph % (Auto) 26.9 [place] % (Auto) 10.4 H Eos % (Auto) 5.4 H Baso % (Auto) 0.4 Neut # (Auto) 4.4 Lymph # (Auto) 2.1 [place] # (Auto) 0.8 Eos # (Auto) 0.4 Baso # (Auto) 0.0 Sodium 139 Potassium 3.7 Chloride 100 Carbon Dioxide 29 Anion Gap 14 BUN 21 H Creatinine 1.0 Est GFR ( Amer) > 60 Est GFR (Non-Af Amer) 54 Random Glucose 92 Calcium 8.2 L Total Bilirubin 0.4 AST 44 H D ALT 21 Alkaline Phosphatase 88 Total Protein 6.6 Albumin 3.6 Globulin 3.1 Albumin/Globulin Ratio 1.2 - Imaging and Cardiology CT scan - head Status: Image reviewed by me, Report reviewed by me (MRi Brain: shows mesial temporal sclerosis,right sided. 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 I feel that she needs another medications and will add increased dosage of keppra in addition to lamictal. plan: 1. Continue lamictal, and keppra at 1500 mg bid. 2. EEG Thank you for this interesting consult. DR. Campos
--- NOTE | 2017-06-08 15:26 | MRI ---
PROCEDURE: MRI of the brain dated 06/08/2017 HISTORY: New onset seizure COMPARISON: No prior studies available comparison TECHNIQUE: Multiplanar, multisequence MR images of the brain were obtained without intravenous contrast enhancement. FINDINGS: HEMORRHAGE: No acute parenchymal, subarachnoid or extra-axial hemorrhage. No evidence of hemosiderin deposition identified on gradient echo weighted sequence. DWI: No evidence of an acute or early subacute infarction seen on diffusion imaging. . BRAIN PARENCHYMA: Moderate diffuse/ confluent chronic periventricular white matter ischemic changes seen extending peripherally into the deep and subcortical regions of both cerebral hemispheres. Multiple more discrete chronic appearing lacunar type infarcts scattered about the deep and subcortical white matter as well as both basal nuclei and brainstem. None of these changes exhibit restricted diffusion. . Note also made of what appears represent increased the signal in the right hippocampal region rated there also appears to be localized dilatation of the right temporal horn. 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 . Clinical correlation recommended. VENTRICLES: No obstructive hydrocephalus. CRANIUM: Calvarium appears grossly unremarkable ORBITS: Changes of bilateral cataract surgery are present PARANASAL SINUSES/MASTOIDS: Frontal sinuses appears underpneumatized/ hypoplastic. Remaining visualized paranasal air complexes well-developed and currently well-aerated. Partial opacification of the right mastoid air complex. VASCULAR SYSTEM: Visualized major vascular flow voids at skull base patent. OTHER FINDINGS: None. IMPRESSION: Study is limited by motion artifact. No acute intracranial hemorrhage or infarct. Moderate to significant diffuse/ confluent chronic white matter ischemic changes with scattered basal nuclei and brainstem ischemic changes. 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
--- NOTE | 2017-06-08 15:33 | CP.PCM.PN ---
Subjective - Date & Time of Evaluation Date of Evaluation: 06/08/17 Time of Evaluation: 09:10 - Subjective Subjective: Patient seen and examined at bedside with present. Patient's breathing is improved and she is now off BiPAP. No acute events reported. Patient remains afebrile. Patient still has crackles. Objective - Vital Signs/Intake and Output Vital Signs (last 24 hours): Temp Pulse Resp BP Pulse Ox 97.4 F L 60 20 104/63 96 06/08/17 15:00 06/08/17 15:00 06/08/17 15:00 06/08/17 15:00 06/08/17 15:00 - Medications Medications: Current Medications Aspirin (Ecotrin) 81 mg PO DAILY [facility] Last Admin: 06/08/17 10:32 Dose: 81 mg Docusate Sodium (Colace) 100 mg PO BID [facility] Last Admin: 06/08/17 10:33 Dose: 100 mg Donepezil HCl (Aricept) 5 mg PO HS [facility] Last Admin: 06/07/17 21:16 Dose: 5 mg Furosemide (Lasix) 40 mg IVP DAILY [facility] Last Admin: 06/08/17 10:33 Dose: 40 mg Metronidazole (Flagyl) 500 mg in 100 mls @ 100 mls/hr IVPB Q8 [facility] PRN Reason: Protocol Last Admin: 06/08/17 14:44 Dose: 100 mls/hr Ceftriaxone Sodium 1 gm/ (Sodium Chloride) 100 mls @ 100 mls/hr IVPB DAILY [facility] PRN Reason: Protocol Last Admin: 06/08/17 10:31 Dose: 100 mls/hr Lamotrigine (Lamictal) 100 mg PO BID [facility] Last Admin: 06/08/17 10:32 Dose: 100 mg Levetiracetam (Keppra) 1,500 mg PO BID [facility] Last Admin: 06/08/17 10:32 Dose: 1,500 mg Levothyroxine Sodium (Synthroid) 75 mcg PO 0630 [facility] Last Admin: 06/08/17 05:51 Dose: 75 mcg Lorazepam (Ativan) 1 mg PO BID PRN PRN Reason: Anxiety Last Admin: 06/08/17 11:14 Dose: 1 mg Lorazepam (Ativan) 1 mg PO HS [facility] Last Admin: 06/07/17 21:18 Dose: 1 mg Losartan Potassium (Cozaar) 25 mg PO DAILY [facility] Last Admin: 06/08/17 10:33 Dose: 25 mg Pantoprazole Sodium (Protonix Ec Tab) 40 mg PO DAILY [facility] Last Admin: 06/08/17 10:33 Dose: 40 mg Paroxetine HCl (Paxil) 30 mg PO DAILY [facility] Last Admin: 06/08/17 10:34 Dose: 30 mg Quetiapine Fumarate (Seroquel) 25 mg PO DAILY [facility] Last Admin: 06/08/17 10:34 Dose: 25 mg Quetiapine Fumarate (Seroquel) 50 mg PO HS [facility] Last Admin: 06/07/17 21:15 Dose: 50 mg Rosuvastatin Calcium (Crestor) 20 mg PO [facility] Last Admin: 06/07/17 21:15 Dose: 20 mg - Labs Labs: 06/08/17 07:23 06/08/17 07:23 PT 11.3 SECONDS (9.7-12.2) 06/05/17 22:49 INR 1.0 06/05/17 22:49 APTT 26 SECONDS (21-34) 06/05/17 22:49 - Head Exam Head Exam: ATRAUMATIC, NORMOCEPHALIC - ENT Exam ENT Exam: Mucous Membranes Moist - Neck Exam Neck Exam: Normal Inspection - Respiratory Exam Respiratory Exam: Rales - Cardiovascular Exam Cardiovascular Exam: REGULAR RHYTHM Assessment and Plan (1) Dyspnea Assessment & Plan: clinical impression much improved Patient is off BiPAP Continue antibiotics Followup chest x-ray Continue diuretics Status: Acute (2) Respiratory distress Status: Acute (3) Seizure Status: Acute
--- NOTE | 2017-06-08 19:21 | PN ---
DATE: SUBJECTIVE: The patient is seen. The patient is seen with her . The patient's meds were readjusted. She was also referred to be seen by Neurology to review her seizure medications. The patient is on high dose of Keppra which could be contributory to her persistent psychosis. She still reports she is seeing her friend and some other relatives, but she is sleeping better. Her Seroquel dose was readjusted and was given Ativan. PHYSICAL EXAMINATION: VITAL SIGNS: Temperature is 97.4, pulse rate is 60, blood pressure is 104/62, respirations 20, oxygen saturation is 96%. REVIEW OF SYSTEMS: GENERAL: The patient is alert, oriented x2, seen in her room sitting, seen with her , wants to take her home once she is medically stable. SKIN: No diaphoresis. HEENT: No headache. No dizziness. NECK: Supple. RESPIRATORY: No dyspnea. CARDIOVASCULAR: No chest pain. GASTROINTESTINAL: No nausea. No vomiting. EXTREMITIES: The patient moves extremities. MUSCULOSKELETAL: Feels weak. NEUROLOGIC: Alert with periods of confusion. GENITOURINARY: No dysuria. MENTAL STATUS EXAMINATION: An elderly female who looks stated age, oriented x2, still has periods of confusion. Mood is dysphoric. Affect is restricted. Thought process, forgetful. Thought content, continues to have intermittent visual hallucinations, seeing her friend and some relatives, and at times arguing with them. The patient seems to be responding to internal stimuli; but today she is much better than the last few days. She is sleeping much better. Has been compliant with meds. Attention and memory still limited. Insight and judgment limited. Impulse control is improving at this time. IMPRESSION: History of dementia, delirium, metabolic encephalopathy, psychosis, history of cerebrovascular accident, seizure, history of respiratory distress. PLAN AND RECOMMENDATIONS: We will continue treatment plan as outlined. The patient has been evaluated by Neuro. Continue present psych meds as ordered. We will hold off any change in the psych meds for now. Her does not want the patient to go for subacute rehab. Once the patient is medically cleared, her will take her home and does not want the patient to go for rehab. Mychal Huddleston MD [facility] # [id number]
--- NOTE | 2017-06-08 20:11 | PN ---
DATE: SUBJECTIVE: The patient denies any chest pain or shortness of breath at this time. PHYSICAL EXAMINATION: VITAL SIGNS: Blood pressure 104/63, heart rate 60, temperature 97.4, and respirations 20. HEENT: Pale conjunctivae. CHEST: Clear. HEART: S1 and S2, regular. EXTREMITIES: No edema. LABORATORY DATA: Review of SMA-7 is within normal limits except for BUN of 21. Calcium is below normal at 8.2. Today's hemoglobin and hematocrit 9.7 and 27.7. White count and platelet counts are within normal limits. Yesterday's EKG revealed sinus rhythm with first-degree AV block, prolonged QT interval. Echocardiographic study revealed normal left ventricular systolic function. Diastolic dysfunction. Mild MR, mild TR, mild mitral insufficiency, mild tricuspid insufficiency, and mild aortic regurgitation. Brain MRI was a limited study by motion artifact. No acute intracranial hemorrhage or infarct. [id number]-[id number] diffuse confluent chronic white matter ischemic changes with scattered basal nuclei and brainstem ischemic changes. ASSESSMENT: 1. Witnessed seizure activity. 2. Diastolic left ventricular dysfunction. 3. Anemia. 4. Abnormal EKG with evidence of prolonged QT interval. The patient's magnesium level on 06/05/2017 and 06/06/2017 was within normal limits. 5. Hypertension. 6. History of cerebrovascular accident. RECOMMENDATIONS: Continue current 5 mg nightly, IV Rocephin 1 gm daily, Keppra 1500 mg p.o. twice a day, Flagyl 500 mg intravenously q.8 hours, Crestor 20 mg once a day, Cozaar 25 mg once a day, aspirin 81 mg once a day, Lasix 40 mg intravenously daily, Synthroid 75 mcg once a day. Viraj Dinero MD
--- NOTE | 2017-06-08 22:28 | CARD ---
APPROVED REPORT EKG Measurement Heart [id number] AR [id number] <Conclusion> Sinus bradycardia with 1st degree AV block Prolonged QT Abnormal ECG
--- NOTE | 2017-06-08 23:20 | CP.PCM.PN ---
Subjective - Date & Time of Evaluation Date of Evaluation: 06/08/17 Time of Evaluation: 17:40 - Subjective Subjective: Patient seen and examined at bedside with present. Patient's breathing is improved and she is now off BiPAP. No acute events reported. Patient remains afebrile. Patient still has crackles. Objective - Vital Signs/Intake and Output Vital Signs (last 24 hours): Temp Pulse Resp BP Pulse Ox 97.4 F L 56 L 20 104/63 96 06/08/17 15:00 06/08/17 21:25 06/08/17 15:00 06/08/17 15:00 06/08/17 15:00 Intake and Output: 06/08/17 06/09/17 18:59 06:59 Intake Total 400 Balance 400 - Medications Medications: Current Medications Aspirin (Ecotrin) 81 mg PO DAILY [facility] Last Admin: 06/08/17 10:32 Dose: 81 mg Docusate Sodium (Colace) 100 mg PO BID [facility] Last Admin: 06/08/17 17:05 Dose: 100 mg Donepezil HCl (Aricept) 5 mg PO [facility] Last Admin: 06/08/17 21:14 Dose: 5 mg Furosemide (Lasix) 40 mg IVP DAILY [facility] Last Admin: 06/08/17 10:33 Dose: 40 mg Metronidazole (Flagyl) 500 mg in 100 mls @ 100 mls/hr IVPB Q8 [facility] PRN Reason: Protocol Last Admin: 06/08/17 21:14 Dose: 100 mls/hr Ceftriaxone Sodium 1 gm/ (Sodium Chloride) 100 mls @ 100 mls/hr IVPB DAILY [facility] PRN Reason: Protocol Last Admin: 06/08/17 10:31 Dose: 100 mls/hr Lamotrigine (Lamictal) 100 mg PO BID [facility] Last Admin: 06/08/17 17:05 Dose: 100 mg Levetiracetam (Keppra) 1,500 mg PO BID [facility] Last Admin: 06/08/17 17:05 Dose: 1,500 mg Levothyroxine Sodium (Synthroid) 75 mcg PO 0630 [facility] Last Admin: 06/08/17 05:51 Dose: 75 mcg Lorazepam (Ativan) 1 mg PO BID PRN PRN Reason: Anxiety Last Admin: 06/08/17 11:14 Dose: 1 mg Lorazepam (Ativan) 1 mg PO HS [facility] Last Admin: 06/08/17 21:14 Dose: 1 mg Losartan Potassium (Cozaar) 25 mg PO DAILY [facility] Last Admin: 06/08/17 10:33 Dose: 25 mg Pantoprazole Sodium (Protonix Ec Tab) 40 mg PO DAILY [facility] Last Admin: 06/08/17 10:33 Dose: 40 mg Paroxetine HCl (Paxil) 30 mg PO DAILY [facility] Last Admin: 06/08/17 10:34 Dose: 30 mg Quetiapine Fumarate (Seroquel) 25 mg PO DAILY [facility] Last Admin: 06/08/17 10:34 Dose: 25 mg Quetiapine Fumarate (Seroquel) 50 mg PO HS [facility] Last Admin: 06/08/17 21:15 Dose: 50 mg Rosuvastatin Calcium (Crestor) 20 mg PO [facility] Last Admin: 06/08/17 21:14 Dose: 20 mg - Labs Labs: 06/08/17 07:23 06/08/17 07:23 PT 11.3 SECONDS (9.7-12.2) 06/05/17 22:49 INR 1.0 06/05/17 22:49 APTT 26 SECONDS (21-34) 06/05/17 22:49 Assessment and Plan (1) Dementia Status: Acute (2) Dyspnea Status: Acute (3) Respiratory distress Status: Acute (4) Seizure Status: Acute
[2017-06-09] MEDS: metroNIDAZOLE IV 500 mg/100 ml 500 MG/100 ML BAG IVPB SCH ×2 (05:23→13:49)
[2017-06-09] MEDS: Levothyroxine 75 MCG TAB PO SCH (05:52)
[2017-06-09 08:28] LABS: BASO % 0.4 % (0.0-2.0); EOS # 0.4 K/uL (0.0-0.7); EOS % 6.1 % (0.0-4.0); HEMOGLOBIN 9.3 g/dL (11.0-16.0); LYMPH # 1.9 K/uL (1.0-4.3); LYMPH % 26.6 % (20.0-40.0); MEAN CELL VOLUME 84.7 fL (81.0-99.0); MEAN CORPUSCULAR HEMOGLOBIN 28.4 pg (27.0-31.0); MEAN CORPUSCULAR HGB CONC 33.5 g/dL (33.0-37.0); MEAN PLATELET VOLUME 7.4 fL (7.2-11.7); MONO # 0.8 K/uL (0.0-0.8); MONO % 11.8 % (0.0-10.0); NEUT # 3.8 K/uL (1.8-7.0); NEUT % 55.1 % (50.0-75.0); RBC 3.26 Mil/uL (3.80-5.20)
[2017-06-09 08:50] LABS: ALB/GLOB RATIO 1.1 (1.0-2.1); ALBUMIN 3.7 g/dL (3.5-5.0); ALT/SGPT 26 U/L (9-52); AST/SGOT 35 U/L (14-36); BLOOD UREA NITROGEN 22 mg/dL (7-17); CALCIUM 8.4 mg/dl (8.6-10.4); GFR AFRICAN-AMERICAN > 60; GFR NON-AFRICAN AMERICAN 54
[2017-06-09] MEDS: Pantoprazole 40 mg EC Tab PO SCH (10:10)
--- NOTE | 2017-06-09 10:12 | RAD ---
Chest x-ray single frontal view History: Shortness of breath. Comparison: 06/05/2017 Findings: Biapical pleural thickening. Mild venous congestion. Bilateral hilar prominence. Calcification at the aortic knob. Degenerative changes in the spine with paravertebral osteophytes. Small nodular density at the left lung base. Top normal heart size. Impression: Biapical pleural thickening. Mild venous congestion. Bilateral hilar prominence. Calcification at the aortic knob. Degenerative changes in the spine with paravertebral osteophytes. Small nodular density at the left lung base. Top normal heart size.
--- NOTE | 2017-06-09 17:44 | PN ---
DATE: SUBJECTIVE: The patient is seen. The patient is more alert, but still confused. The patient was seen by neurologist and the patient's dose of Keppra was lowered from 1500 mg twice a day to 1000 mg two times a day. Today, she is more alert despite the confusion and states she wants to go home. The patient reports no visual hallucinations seeing people. She said she is awaiting for to take her home. Tolerating recent change of medication, the patient is on Ativan 1 mg p.o. b.i.d.prn and, 1 mg at bedtime. The patient is on Paxil 30 mg daily and Seroquel 25 mg in the morning and 50 mg at bedtime. PHYSICAL EXAMINATION: VITAL SIGNS: Temperature is 97.7, pulse rate is 68, blood pressure is 124/62, respirations 18, oxygen saturation is 98% on room air. REVIEW OF SYSTEMS: GENERAL: The patient is alert, verbal, still confused, not in acute respiratory distress on close monitoring. SKIN: No diaphoresis. HEENT: No headache. No dizziness. NECK: Supple. RESPIRATORY: No dyspnea. CARDIOVASCULAR: No chest pain. GASTROINTESTINAL: She is eating fairly well. EXTREMITIES: The patient is moving extremities. MUSCULOSKELETAL: Weakness, improving. NEUROLOGIC: Alert with periods of confusion. MENTAL STATUS EXAMINATION: An elderly female who looks stated age, oriented x2, still confused. Speech is spontaneous, the patient speaks good Persian. Affect is reactive. Mood is calm. Thought process, confused. Thought content, no visual hallucinations, no paranoia. No suicidal or homicidal ideation. Attention and memory seem to be still limited. Insight and judgment limited. Impulse control is fair at this time. IMPRESSION: History of delirium, metabolic encephalopathy, superimposed dementia, history of cerebrovascular accident, improving. PLAN AND RECOMMENDATIONS: The patient is seen, meds reviewed. The patient's hallucinations seems to be improving with the reduction of the dose of Keppra. Continue present psych meds. The patient's family, especially her does not want the patient to go for subacute rehab. Once the patient is medically cleared, the patient can go home with her . Continue present psych meds as ordered. Mychal Huddleston MD [facility] # [id number] MTDD
--- NOTE | 2017-06-09 23:50 | CP.PCM.PN ---
Subjective - Date & Time of Evaluation Date of Evaluation: 06/09/17 Time of Evaluation: 19:00 - Subjective Subjective: PT IS SEEN AND EXAMINED, AFEBRILE, STABLE, SEIZURE REOLVED, PT IS BETTER, UNSTEADT WHEN SHE WALKS, POSITIVE COUGH AND WHEEZING Objective - Vital Signs/Intake and Output Vital Signs (last 24 hours): Temp Pulse Resp BP Pulse Ox 98.2 F 66 20 132/84 98 06/09/17 15:30 06/09/17 23:00 06/09/17 15:30 06/09/17 15:30 06/09/17 15:30 Intake and Output: 06/09/17 06/10/17 18:59 06:59 Intake Total 600 200 Balance 600 200 - Medications Medications: Current Medications Aspirin (Ecotrin) 81 mg PO DAILY [facility] Last Admin: 06/09/17 10:10 Dose: 81 mg Docusate Sodium (Colace) 100 mg PO BID [facility] Last Admin: 06/09/17 18:33 Dose: 100 mg Donepezil HCl (Aricept) 5 mg PO HS [facility] Last Admin: 06/09/17 21:08 Dose: 5 mg Furosemide (Lasix) 40 mg IVP DAILY [facility] Last Admin: 06/09/17 10:10 Dose: 40 mg Ceftriaxone Sodium 1 gm/ (Sodium Chloride) 100 mls @ 100 mls/hr IVPB DAILY [facility] PRN Reason: Protocol Last Admin: 06/09/17 10:10 Dose: 100 mls/hr Lamotrigine (Lamictal) 100 mg PO BID [facility] Last Admin: 06/09/17 18:33 Dose: 100 mg Levetiracetam (Keppra) 1,000 mg PO BID [facility] Last Admin: 06/09/17 18:34 Dose: 1,000 mg Levothyroxine Sodium (Synthroid) 75 mcg PO 0630 [facility] Last Admin: 06/09/17 05:52 Dose: 75 mcg Lorazepam (Ativan) 1 mg PO BID PRN PRN Reason: Anxiety Last Admin: 06/08/17 11:14 Dose: 1 mg Lorazepam (Ativan) 1 mg PO HS [facility] Last Admin: 06/09/17 21:06 Dose: 1 mg Losartan Potassium (Cozaar) 25 mg PO DAILY [facility] Last Admin: 06/09/17 10:10 Dose: 25 mg Pantoprazole Sodium (Protonix Ec Tab) 40 mg PO DAILY [facility] Last Admin: 06/09/17 10:10 Dose: 40 mg Paroxetine HCl (Paxil) 30 mg PO DAILY [facility] Last Admin: 06/09/17 10:10 Dose: 30 mg Quetiapine Fumarate (Seroquel) 25 mg PO DAILY [facility] Last Admin: 06/09/17 10:13 Dose: 25 mg Quetiapine Fumarate (Seroquel) 50 mg PO [facility] Last Admin: 06/09/17 21:07 Dose: 50 mg Rosuvastatin Calcium (Crestor) 20 mg PO [facility] Last Admin: 06/09/17 21:07 Dose: 20 mg - Labs Labs: 06/09/17 08:15 06/09/17 08:15 PT 11.3 SECONDS (9.7-12.2) 06/05/17 22:49 INR 1.0 06/05/17 22:49 APTT 26 SECONDS (21-34) 06/05/17 22:49 - Constitutional Appears: No Acute Distress, Younger Than Stated Age - Head Exam Head Exam: ATRAUMATIC, NORMAL INSPECTION, NORMOCEPHALIC - Eye Exam Eye Exam: EOMI, Normal appearance, PERRL Pupil Exam: NORMAL ACCOMODATION, PERRL - ENT Exam ENT Exam: Mucous Membranes Moist, Normal Exam - Respiratory Exam Respiratory Exam: Clear to Ausculation Bilateral, NORMAL BREATHING PATTERN - Cardiovascular Exam Cardiovascular Exam: REGULAR RHYTHM, +S1, +S2. absent: Murmur - GI/Abdominal Exam GI & Abdominal Exam: Soft, Normal Bowel Sounds. absent: Tenderness Assessment and Plan (1) Dementia Status: Acute (2) Dyspnea Status: Acute (3) Respiratory distress Status: Acute (4) Seizure Status: Acute
[2017-06-10] MEDS: Levothyroxine 75 MCG TAB PO SCH (06:07)
[2017-06-10 07:49] LABS: BASO % 0.4 % (0.0-2.0); EOS # 0.4 K/uL (0.0-0.7); EOS % 5.3 % (0.0-4.0); MEAN CELL VOLUME 83.9 fL (81.0-99.0); MEAN CORPUSCULAR HEMOGLOBIN 28.4 pg (27.0-31.0); MEAN CORPUSCULAR HGB CONC 33.9 g/dL (33.0-37.0); MEAN PLATELET VOLUME 7.6 fL (7.2-11.7); MONO # 0.9 K/uL (0.0-0.8); MONO % 12.5 % (0.0-10.0); NEUT # 3.8 K/uL (1.8-7.0); NEUT % 53.8 % (50.0-75.0); RBC 3.17 Mil/uL (3.80-5.20)
[2017-06-10 08:21] LABS: ALB/GLOB RATIO 1.2 (1.0-2.1); ALBUMIN 3.6 g/dL (3.5-5.0); ALT/SGPT 24 U/L (9-52); AST/SGOT 28 U/L (14-36); BLOOD UREA NITROGEN 21 mg/dL (7-17); CALCIUM 8.7 mg/dl (8.6-10.4); GFR AFRICAN-AMERICAN > 60; GFR NON-AFRICAN AMERICAN 54
[2017-06-10] MEDS: Pantoprazole 40 mg EC Tab PO SCH (10:13)
--- NOTE | 2017-06-10 10:14 | CP.PCM.PN ---
Subjective - Date & Time of Evaluation Date of Evaluation: 06/10/17 Time of Evaluation: 10:14 - Subjective Subjective: Ms. Mcleod was seen and examined at the bedside. She is awake, able to answer some questions, but not everything. She remains with episode of confusion, but able to redirect by staff. She is unable to follow simple commands, moves all extremities spontaneously. She remains on a 1:1 sitter for patient safety. According to staff, no seizure activity noted overnight. There was no untoward events overnight. Objective - Vital Signs/Intake and Output Vital Signs (last 24 hours): Temp Pulse Resp BP Pulse Ox 97.7 F 69 20 143/60 98 06/10/17 07:00 06/10/17 07:00 06/10/17 07:00 06/10/17 07:00 06/10/17 07:00 Intake and Output: 06/10/17 06/10/17 06:59 18:59 Intake Total 200 Balance 200 - Medications Medications: Current Medications Aspirin (Ecotrin) 81 mg PO DAILY [facility] Last Admin: 06/09/17 10:10 Dose: 81 mg Docusate Sodium (Colace) 100 mg PO BID [facility] Last Admin: 06/10/17 10:13 Dose: 100 mg Donepezil HCl (Aricept) 5 mg PO HS [facility] Last Admin: 06/09/17 21:08 Dose: 5 mg Furosemide (Lasix) 40 mg IVP DAILY [facility] Last Admin: 06/09/17 10:10 Dose: 40 mg Ceftriaxone Sodium 1 gm/ (Sodium Chloride) 100 mls @ 100 mls/hr IVPB DAILY [facility] PRN Reason: Protocol Last Admin: 06/10/17 10:13 Dose: 100 mls/hr Lamotrigine (Lamictal) 100 mg PO BID [facility] Last Admin: 06/10/17 10:13 Dose: 100 mg Levetiracetam (Keppra) 1,000 mg PO BID [facility] Last Admin: 06/10/17 10:12 Dose: 1,000 mg Levothyroxine Sodium (Synthroid) 75 mcg PO 0630 [facility] Last Admin: 06/10/17 06:07 Dose: 75 mcg Lorazepam (Ativan) 1 mg PO BID PRN PRN Reason: Anxiety Last Admin: 06/08/17 11:14 Dose: 1 mg Lorazepam (Ativan) 1 mg PO HS [facility] Last Admin: 06/09/17 21:06 Dose: 1 mg Losartan Potassium (Cozaar) 25 mg PO DAILY [facility] Last Admin: 06/10/17 10:13 Dose: 25 mg Pantoprazole Sodium (Protonix Ec Tab) 40 mg PO DAILY [facility] Last Admin: 06/10/17 10:13 Dose: 40 mg Paroxetine HCl (Paxil) 30 mg PO DAILY [facility] Last Admin: 06/10/17 10:12 Dose: 30 mg Quetiapine Fumarate (Seroquel) 25 mg PO DAILY [facility] Last Admin: 06/10/17 10:13 Dose: 25 mg Quetiapine Fumarate (Seroquel) 50 mg PO [facility] Last Admin: 06/09/17 21:07 Dose: 50 mg Rosuvastatin Calcium (Crestor) 20 mg PO [facility] Last Admin: 06/09/17 21:07 Dose: 20 mg - Labs Labs: 06/10/17 07:38 06/10/17 07:38 PT 11.3 SECONDS (9.7-12.2) 06/05/17 22:49 INR 1.0 06/05/17 22:49 APTT 26 SECONDS (21-34) 06/05/17 22:49 - Constitutional Appears: No Acute Distress - Head Exam Head Exam: NORMAL INSPECTION - Neurological Exam Neurological Exam: Awake Neuro motor strength exam: Left Upper Extremity: 5, Right Upper Extremity: 5, Left Lower Extremity: 5, Right Lower Extremity: 5 Additional comments: She is awake, with episode of confusion, unable to follow simple commands. Assessment and Plan (1) Seizure Assessment & Plan: Case discussed with Dr. Campos, continue all current medical regimen including all AED. Pending EEG results. Status: Acute
--- NOTE | 2017-06-10 10:50 | CP.PCM.PN ---
Subjective - Date & Time of Evaluation Date of Evaluation: 06/10/17 Time of Evaluation: 07:30 - Subjective Subjective: patient seen and examined Lying comfortably in no distress Much more responsive No shortness of breath Afebrile On antibiotics for possible aspiration Being treated for seizures Objective - Vital Signs/Intake and Output Vital Signs (last 24 hours): Temp Pulse Resp BP Pulse Ox 97.7 F 69 20 143/60 98 06/10/17 07:00 06/10/17 07:00 06/10/17 07:00 06/10/17 10:14 06/10/17 07:00 Intake and Output: 06/10/17 06/10/17 06:59 18:59 Intake Total 200 Balance 200 - Medications Medications: Current Medications Aspirin (Ecotrin) 81 mg PO DAILY [facility] Last Admin: 06/10/17 10:16 Dose: 81 mg Docusate Sodium (Colace) 100 mg PO BID [facility] Last Admin: 06/10/17 10:13 Dose: 100 mg Donepezil HCl (Aricept) 5 mg PO HS [facility] Last Admin: 06/09/17 21:08 Dose: 5 mg Furosemide (Lasix) 40 mg IVP DAILY [facility] Last Admin: 06/10/17 10:14 Dose: 40 mg Ceftriaxone Sodium 1 gm/ (Sodium Chloride) 100 mls @ 100 mls/hr IVPB DAILY [facility] PRN Reason: Protocol Last Admin: 06/10/17 10:13 Dose: 100 mls/hr Lamotrigine (Lamictal) 100 mg PO BID [facility] Last Admin: 06/10/17 10:13 Dose: 100 mg Levetiracetam (Keppra) 1,000 mg PO BID [facility] Last Admin: 06/10/17 10:12 Dose: 1,000 mg Levothyroxine Sodium (Synthroid) 75 mcg PO 0630 [facility] Last Admin: 06/10/17 06:07 Dose: 75 mcg Lorazepam (Ativan) 1 mg PO BID PRN PRN Reason: Anxiety Last Admin: 06/08/17 11:14 Dose: 1 mg Lorazepam (Ativan) 1 mg PO HS [facility] Last Admin: 06/09/17 21:06 Dose: 1 mg Losartan Potassium (Cozaar) 25 mg PO DAILY [facility] Last Admin: 06/10/17 10:13 Dose: 25 mg Pantoprazole Sodium (Protonix Ec Tab) 40 mg PO DAILY [facility] Last Admin: 06/10/17 10:13 Dose: 40 mg Paroxetine HCl (Paxil) 30 mg PO DAILY [facility] Last Admin: 06/10/17 10:12 Dose: 30 mg Quetiapine Fumarate (Seroquel) 25 mg PO DAILY [facility] Last Admin: 06/10/17 10:13 Dose: 25 mg Quetiapine Fumarate (Seroquel) 50 mg PO HS [facility] Last Admin: 06/09/17 21:07 Dose: 50 mg Rosuvastatin Calcium (Crestor) 20 mg PO [facility] Last Admin: 06/09/17 21:07 Dose: 20 mg - Labs Labs: 06/10/17 07:38 06/10/17 07:38 PT 11.3 SECONDS (9.7-12.2) 06/05/17 22:49 INR 1.0 06/05/17 22:49 APTT 26 SECONDS (21-34) 06/05/17 22:49 Assessment and Plan (1) Dyspnea Status: Acute (2) Respiratory distress Status: Acute (3) Seizure Status: Acute
--- NOTE | 2017-06-10 18:30 | PN ---
DATE: 06/10/2017 SUBJECTIVE: The patient denies chest pain. She complains of palpitations. PHYSICAL EXAMINATION: VITAL SIGNS: Blood pressure 143/60, heart rate 69, temperature 97.7, and respirations 20. The patient is in sinus rhythm on the monitor. HEENT: Pale conjunctivae. CHEST: Clear. HEART: S1 and S2, regular. ABDOMEN: Soft. EXTREMITIES: No edema. LABORATORY DATA: Hemoglobin and hematocrit 9 and 26.6. White count and platelet count are within normal limit. Today's SMA-7 is within normal limits except for BUN of 21. Calcium is within normal limit at 8.7. ASSESSMENT: 1. Shortness of breath upon presentation in a setting of seizure activity. 2. Hypothyroidism. 3. Hypertension. 4. Diastolic left ventricular dysfunction. 5. The patient complains of palpitations today; however, she is in sinus rhythm on the monitor. RECOMMENDATIONS: Continue current Aricept, Ativan, and Rocephin. Continue Cozaar 25 mg once a day,Crestor 20 mg once a day, aspirin 81 mg once a day, Keppra at 1 gm p.o. twice a day, Lamictal at 100 mg once a day, Lasix at 20 mg intravenously daily, Synthroid 75 mcg once a day. Viraj Dinero MD
--- NOTE | 2017-06-10 19:22 | PN ---
DATE: 06/10/2017 SUBJECTIVE: The patient is seen. The patient reports improvement of hallucination. She was seen with today. The patient states she wants to go home. The nurse reports no behavioral problems. The patient is sleeping better. She is more alert and verbal. Tolerating recent change in psych meds. She said she wants to go home tomorrow. VITAL SIGNS: Temperature is 97.7, pulse 62, blood pressure 143/60, respirations 20, oxygen saturation is 98%. The patient's mental status seems to have improved with the reduction of the dose of Keppra and re-adjustment of her other psych meds. REVIEW OF SYSTEMS: GENERAL: She is alert, verbal, less confused, forgetful. Not in acute respiratory distress. She was seen resting in bed. SKIN: No diaphoresis. HEENT: No headache. No dizziness. NECK: Supple. RESPIRATORY: No dyspnea. CARDIOVASCULAR: No chest pain. GASTROINTESTINAL: She is eating well. EXTREMITIES. The patient is moving extremities. MUSCULOSKELETAL: Weakness improving. NEURO: Alert with periods of forgetfulness. Less confused. MENTAL STATUS EXAMINATION: Elderly female who looks stated age, conversing in [place], seen with . Mood is calm. Affect is reactive. Speech is spontaneous. Thought process, forgetful. Thought content, reports improvement of her visual hallucinations. She is no longer seeing much of the people recently. No paranoia. No suicidal or homicidal ideation. Attention and memory seem to be limited. Insight and judgment limited. Impulse control is fair at this time. IMPRESSION: History of delirium, metabolic encephalopathy superimposed on dementia with mood changes. History of CVA. PLAN AND RECOMMENDATIONS: The patient is seen, meds reviewed. Continue present management. Psychwise, the patient wants medically cleared and go home with her . The patient's does not want the patient to go for subacute rehab as well as the patient states she does not want to go for subacute rehab, so once the patient is medically cleared, she can go home. Mychal Huddleston MD [facility]
--- NOTE | 2017-06-10 23:36 | CP.PCM.PN ---
Subjective - Date & Time of Evaluation Date of Evaluation: 06/10/17 Time of Evaluation: 18:30 - Subjective Subjective: patient seen and examined Lying comfortably in no distress Much more responsive No shortness of breath Afebrile On antibiotics for possible aspiration Being treated for seizures Objective - Vital Signs/Intake and Output Vital Signs (last 24 hours): Temp Pulse Resp BP Pulse Ox 98.0 F 73 20 148/75 95 06/10/17 16:13 06/10/17 20:13 06/10/17 16:13 06/10/17 16:13 06/10/17 16:13 Intake and Output: 06/10/17 06/11/17 18:59 06:59 Intake Total 400 500 Balance 400 500 - Medications Medications: Current Medications Acetaminophen (Tylenol 325mg Tab) 650 mg PO Q6 PRN PRN Reason: Pain, Mild (1-3) Aspirin (Ecotrin) 81 mg PO DAILY [facility] Last Admin: 06/10/17 10:16 Dose: 81 mg Docusate Sodium (Colace) 100 mg PO BID [facility] Last Admin: 06/10/17 17:13 Dose: 100 mg Donepezil HCl (Aricept) 5 mg PO HS [facility] Last Admin: 06/10/17 21:15 Dose: 5 mg Furosemide (Lasix) 40 mg IVP DAILY [facility] Last Admin: 06/10/17 10:14 Dose: 40 mg Ceftriaxone Sodium 1 gm/ (Sodium Chloride) 100 mls @ 100 mls/hr IVPB DAILY [facility] PRN Reason: Protocol Last Admin: 06/10/17 10:13 Dose: 100 mls/hr Lamotrigine (Lamictal) 100 mg PO BID [facility] Last Admin: 06/10/17 17:13 Dose: 100 mg Levetiracetam (Keppra) 1,000 mg PO BID [facility] Last Admin: 06/10/17 17:13 Dose: 1,000 mg Levothyroxine Sodium (Synthroid) 75 mcg PO 0630 [facility] Last Admin: 06/10/17 06:07 Dose: 75 mcg Lorazepam (Ativan) 1 mg PO BID PRN PRN Reason: Anxiety Last Admin: 06/10/17 16:36 Dose: 1 mg Lorazepam (Ativan) 1 mg PO HS [facility] Last Admin: 06/10/17 21:15 Dose: 1 mg Losartan Potassium (Cozaar) 25 mg PO DAILY [facility] Last Admin: 06/10/17 10:13 Dose: 25 mg Pantoprazole Sodium (Protonix Ec Tab) 40 mg PO DAILY [facility] Last Admin: 06/10/17 10:13 Dose: 40 mg Paroxetine HCl (Paxil) 30 mg PO DAILY [facility] Last Admin: 06/10/17 10:12 Dose: 30 mg Quetiapine Fumarate (Seroquel) 25 mg PO DAILY [facility] Last Admin: 06/10/17 10:13 Dose: 25 mg Quetiapine Fumarate (Seroquel) [address] [facility] Last Admin: 06/10/17 21:14 Dose: 50 mg Rosuvastatin Calcium (Crestor) [address] [facility] Last Admin: 06/10/17 21:14 Dose: 20 mg - Labs Labs: 06/10/17 07:38 06/10/17 07:38 PT 11.3 SECONDS (9.7-12.2) 06/05/17 22:49 INR 1.0 06/05/17 22:49 APTT 26 SECONDS (21-34) 06/05/17 22:49 Assessment and Plan (1) Dementia Status: Acute (2) Dyspnea Status: Acute (3) Respiratory distress Status: Acute (4) Seizure Status: Acute
[2017-06-11] MEDS: Levothyroxine 75 MCG TAB PO SCH (05:42)
--- NOTE | 2017-06-11 07:21 | PN ---
DATE: SUBJECTIVE: The patient is currently on one-to-one watch. No reported chest pain, shortness of breath, or ventricular tachycardia. PHYSICAL EXAMINATION VITAL SIGNS: Blood pressure 124/62, heart rate 60, temperature 97.7, respirations 18. HEENT: Pale conjunctivae. CHEST: Clear. HEART: S1 and S2 regular. EXTREMITIES: Trace leg edema. LABORATORY DATA: Today's SMA-7: Sodium 140, potassium 3.7, chloride 97, CO2 31, glucose 90, BUN 22, creatinine 1.0. Hemoglobin and hematocrit 9.3 and 27.6; white count and platelet count are within normal limits. Chest x-ray was unremarkable. ASSESSMENT: 1. Shortness of breath upon presentation, most likely related to the seizure activity at the time. 2. Diastolic heart failure. 3. Anemia. 4. Hypertension. 5. History of cerebrovascular accident. RECOMMENDATIONS: Continue current Cozaar 25 mg once a day, Crestor 20 mg once a day, aspirin 81 mg once a day. Continue IV Rocephin or IV Flagyl. Continue Lasix 40 mg intravenously daily. Continue Paxil and Seroquel. Continue Synthroid 75 mcg daily. A repeat of the EKG. Viraj Dinero MD
[2017-06-11 07:50] LABS: BASO % 0.5 % (0.0-2.0); EOS # 0.4 K/uL (0.0-0.7); EOS % 5.7 % (0.0-4.0); HEMOGLOBIN 9.7 g/dL (11.0-16.0); LYMPH # 2.3 K/uL (1.0-4.3); LYMPH % 34.8 % (20.0-40.0); MEAN CELL VOLUME 84.4 fL (81.0-99.0); MEAN CORPUSCULAR HEMOGLOBIN 28.2 pg (27.0-31.0); MEAN CORPUSCULAR HGB CONC 33.4 g/dL (33.0-37.0); MEAN PLATELET VOLUME 7.5 fL (7.2-11.7); MONO # 0.9 K/uL (0.0-0.8); MONO % 13.1 % (0.0-10.0); NEUT # 3.1 K/uL (1.8-7.0); NEUT % 45.9 % (50.0-75.0); RBC 3.45 Mil/uL (3.80-5.20); RED CELL DISTRIBUTION WIDTH 18.6 % (11.5-14.5); WHITE BLOOD COUNT 6.8 K/uL (4.8-10.8)
[2017-06-11 08:08] VITALS: PULSE 59; RESP 20; TEMP 97.8; O2SAT 97
[2017-06-11 08:09] LABS: ALB/GLOB RATIO 1.2 (1.0-2.1); ALBUMIN 3.7 g/dL (3.5-5.0); CALCIUM 8.6 mg/dl (8.6-10.4)
[2017-06-11] MEDS: Pantoprazole 40 mg EC Tab PO SCH (11:00)
[2017-06-11 11:19] VITALS: BP 122/66
--- NOTE | 2017-06-11 14:05 | CP.PCM.PN ---
Subjective - Date & Time of Evaluation Date of Evaluation: 06/11/17 Time of Evaluation: 14:05 - Subjective Subjective: -FOLLOW UP WITH YOUR PRIMARY DOCTOR, DR. JC, IN THE OFFICE WITHIN 5-7 DAYS--- CALL THE OFFICE TOMORROW TO MAKE YOUR APPOINTMENT. -FOLLOW UP WITH YOUR NEUROLOGIST IN THE OFFICE WITHIN 7-10 DAYS---CALL THE OFFICE TOMORROW TO MAKE YOUR APPOINTMENT. -CONTINUE HOME MEDICATIONS FOLLOWS: -ASPIRIN 81 MG (1 TABLET) ONCE A DAY -ATORVASTATIN 40MG (1 TABLET) AT BEDTIME -COLACE 100 MG (1 CAPSULE) TWICE A DAY (MORNING AND EVENING) -DONEZEPIL 5MG (1 TABLET) ONCE A DAY (MORNING) THEN TAKE 5 MG (1 TABLET) AT BEDTIME -LASIX (WATER PILL; 1 TABLET) ONCE A DAY -EYE DROPS NEEDED FOR DRY EYES -LAMOTRIGINE 100 MG (1 TABLET) ONCE A DAY -SYNTHROID 75 MCG (1 TABLET) IN THE MORNING BEFORE BREAKFAST -KEPPRA 1,000 MG (TAKE 2 TABLETS OF 500 MG) TWICE A DAY (MORNING AND EVENING) -ATIVAN 1 MG (1 TABLET) TWICE A DAY ONLY IF NEEDED FOR ANXIETY -LOSARTAN 25 MG (1 TABLET) ONCE A DAY -PANTOPRAZOLE 40 MG ONCE A DAY -PAROXETINE 30MG (1 TABLET) ONCE A DAY -SEROQUEL 25 MG (TAKE 1 TABLET) ONCE IN THE MORNING AND THEN TAKE 2 TABLETS AT BEDTIME. -CONTINUE ANTIBIOTIC PRESCRIBED: ZITHROMAX 500 MG BY MOUTH ONCE A DAY FOR 5 DAYS. -HOME PHYSICAL THERAPY HAS BEEN ARRANGED FOR YOU. -FOR FURTHER QUESTIONS OR CONCERNS, CONTACT DR. HAWTHORNE OR DR. JC. Objective - Vital Signs/Intake and Output Vital Signs (last 24 hours): Temp Pulse Resp BP Pulse Ox 97.8 F 59 L 20 122/66 97 06/11/17 08:07 06/11/17 08:19 06/11/17 08:07 06/11/17 10:58 06/11/17 08:07 Intake and Output: 06/11/17 06/11/17 06:59 18:59 Intake Total 500 Balance 500 - Medications Medications: Current Medications Acetaminophen (Tylenol 325mg Tab) 650 mg PO Q6 PRN PRN Reason: Pain, Mild (1-3) Last Admin: 06/10/17 23:44 Dose: 650 mg Aspirin (Ecotrin) 81 mg PO DAILY [facility] Last Admin: 06/11/17 10:59 Dose: 81 mg Docusate Sodium (Colace) 100 mg PO BID [facility] Last Admin: 06/11/17 11:00 Dose: 100 mg Donepezil HCl (Aricept) 5 mg PO HS [facility] Last Admin: 06/10/17 21:15 Dose: 5 mg Furosemide (Lasix) 40 mg IVP DAILY [facility] Last Admin: 06/11/17 10:58 Dose: 40 mg Ceftriaxone Sodium 1 gm/ (Sodium Chloride) 100 mls @ 100 mls/hr IVPB DAILY [facility] PRN Reason: Protocol Last Admin: 06/11/17 10:49 Dose: 100 mls/hr Lamotrigine (Lamictal) 100 mg PO BID [facility] Last Admin: 06/11/17 11:00 Dose: 100 mg Levetiracetam (Keppra) 1,000 mg PO BID [facility] Last Admin: 06/11/17 10:59 Dose: 1,000 mg Levothyroxine Sodium (Synthroid) 75 mcg PO 0630 [facility] Last Admin: 06/11/17 05:42 Dose: 75 mcg Lorazepam (Ativan) 1 mg PO BID PRN PRN Reason: Anxiety Last Admin: 06/10/17 16:36 Dose: 1 mg Lorazepam (Ativan) 1 mg PO HS [facility] Last Admin: 06/10/17 21:15 Dose: 1 mg Losartan Potassium (Cozaar) 25 mg PO DAILY [facility] Last Admin: 06/11/17 10:59 Dose: 25 mg Pantoprazole Sodium (Protonix Ec Tab) 40 mg PO DAILY [facility] Last Admin: 06/11/17 11:00 Dose: 40 mg Paroxetine HCl (Paxil) 30 mg PO DAILY [facility] Last Admin: 06/11/17 10:58 Dose: 30 mg Quetiapine Fumarate (Seroquel) 25 mg PO DAILY [facility] Last Admin: 06/11/17 10:58 Dose: 25 mg Quetiapine Fumarate (Seroquel) 50 mg PO HS [facility] Last Admin: 06/10/17 21:14 Dose: 50 mg Rosuvastatin Calcium (Crestor) 20 mg PO HS [facility] Last Admin: 06/10/17 21:14 Dose: 20 mg - Labs Labs: 06/11/17 07:43 06/11/17 07:43 PT 11.3 SECONDS (9.7-12.2) 06/05/17 22:49 INR 1.0 06/05/17 22:49 APTT 26 SECONDS (21-34) 06/05/17 22:49
--- NOTE | 2017-06-11 16:55 | PN ---
DATE: SUBJECTIVE: The patient is seen. The patient is eating her lunch when seen. The patient is doing much better. She wants to go home. Her wants to take her home, but wants some home care PT and visiting nurse to visit her at home. Psychwise, the patient is improving. Clinically, has been compliant with meds. Psychosis seems to improve with the reduction of her dose of Keppra to 1000 mg twice a day. Today when seen, she reports no hallucinations. She is doing much better and wants to go home. She is eating well and sleeping better. PHYSICAL EXAMINATION: VITAL SIGNS: Temperature is 97.8, pulse rate 59, blood pressure 122/66, respirations 20, oxygen saturation 97%. GENERAL: The patient is alert, oriented x3, has been eating, cooperative, not in acute respiratory distress. The patient is eating well, sleeping well, and no behavioral problems. REVIEW OF SYSTEMS: GENERAL: The patient is alert, oriented x3, still forgetful, not in respiratory distress. SKIN: No diaphoresis. HEENT: No headache. No dizziness. NECK: Supple. RESPIRATORY: No dyspnea. CARDIOVASCULAR: No chest pain. GASTROINTESTINAL: The patient is eating better. EXTREMITIES: Gait unsteady at times. MUSCULOSKELETAL: Feels weak. NEUROLOGIC: Alert and oriented x2, with periods of confusion. GENITOURINARY: No dysuria. MENTAL STATUS EXAMINATION: An elderly female who looks stated age, alert and oriented x2. Mood is calmer. Affect is reactive. Speech is spontaneous. Thought process, forgetful. Thought content, no visual hallucinations. No paranoia. No suicidal or homicidal ideation. Attention and memory seem to be limited. Insight and judgment limited. Impulse control is fair at this time. IMPRESSION: History of dementia with mood changes as well as delirium, metabolic encephalopathy, history of cerebrovascular accident. PLAN AND RECOMMENDATIONS: The patient is seen, meds reviewed. Psychwise, the patient is stable to go home. The patient needs to follow up with Dr. Chu and also we have home PT services. She does not want to go for subacute rehab as well as the . The patient to continue present psych meds and to follow up with her neurologist. The patient seems to be doing better with the reduction of her dose of Keppra and re-adjustment of her psych meds. The patient is stable for discharge once medically cleared by Dr. Chu. Mychal Huddleston MD
--- NOTE | 2017-06-11 18:25 | CP.PCM.PN ---
Subjective - Date & Time of Evaluation Date of Evaluation: 06/11/17 Time of Evaluation: 10:40 - Subjective Subjective: Patient seen and examined at bedside with present. Patient's breathing is improved and she is now off BiPAP. No acute events overnight reported. Patient remains afebrile. Assessment and Plan: 1 hYPOXIA - CXR 06/05: few patchy bibasilar airspace nodular densities, mild venous congestion, cardiomegaly - ABG 06/05: 7.36/ 49/ 172 on FiO2 60% - patient is off BiPAP and breathing much comfortably 2. Suspicion of aspiration pneumonia - CXR 06/05: few patchy bibasilar airspace nodular densities - PT/OT swallow evaluation - consider nectar thickened liquids Objective - Vital Signs/Intake and Output Vital Signs (last 24 hours): Temp Pulse Resp BP Pulse Ox 97.8 F 59 L 20 122/66 97 06/11/17 08:07 06/11/17 08:19 06/11/17 08:07 06/11/17 10:58 06/11/17 08:07 Intake and Output: 06/11/17 06/11/17 06:59 18:59 Intake Total 500 Balance 500 - Labs Labs: 06/11/17 07:43 06/11/17 07:43 PT 11.3 SECONDS (9.7-12.2) 06/05/17 22:49 INR 1.0 06/05/17 22:49 APTT 26 SECONDS (21-34) 06/05/17 22:49 Assessment and Plan (1) Dyspnea Status: Acute (2) Respiratory distress Status: Acute (3) Seizure Status: Acute
--- NOTE | 2017-06-11 21:24 | CP.PCM.DIS ---
Provider - Provider Date of Admission: 06/06/17 01:01 Attending physician: Agustín Chu MD Time Spent in preparation of Discharge (in minutes): 23 Diagnosis - Discharge Diagnosis (1) Dementia Status: Acute (2) Dyspnea Status: Acute (3) Respiratory distress Status: Acute (4) Seizure Status: Acute Hospital Course - Lab Results Lab Results: Most Recent Lab Values WBC 6.8 K/uL (4.8-10.8) 06/11/17 07:43 RBC 3.45 Mil/uL (3.80-5.20) L 06/11/17 07:43 Hgb 9.7 g/dL (11.0-16.0) L 06/11/17 07:43 Hct 29.1 % (34.0-47.0) L 06/11/17 07:43 MCV 84.4 fL (81.0-99.0) 06/11/17 07:43 MCH 28.2 pg (27.0-31.0) 06/11/17 07:43 MCHC 33.4 g/dL (33.0-37.0) 06/11/17 07:43 RDW 18.6 % (11.5-14.5) H 06/11/17 07:43 Plt Count 231 K/uL (130-400) 06/11/17 07:43 MPV 7.5 fL (7.2-11.7) 06/11/17 07:43 Neut % (Auto) 45.9 % (50.0-75.0) L 06/11/17 07:43 Lymph % (Auto) 34.8 % (20.0-40.0) 06/11/17 07:43 [place] % (Auto) 13.1 % (0.0-10.0) H 06/11/17 07:43 Eos % (Auto) 5.7 % (0.0-4.0) H 06/11/17 07:43 Baso % (Auto) 0.5 % (0.0-2.0) 06/11/17 07:43 Neut # (Auto) 3.1 K/uL (1.8-7.0) 06/11/17 07:43 Lymph # (Auto) 2.3 K/uL (1.0-4.3) 06/11/17 07:43 [place] # (Auto) 0.9 K/uL (0.0-0.8) H 06/11/17 07:43 Eos # (Auto) 0.4 K/uL (0.0-0.7) 06/11/17 07:43 Baso # (Auto) 0.0 K/uL (0.0-0.2) 06/11/17 07:43 PT 11.3 SECONDS (9.7-12.2) 06/05/17 22:49 INR 1.0 06/05/17 22:49 APTT 26 SECONDS (21-34) 06/05/17 22:49 Puncture Site Rradial 06/05/17 22:55 pCO2 49 mm/Hg (35-45) H 06/05/17 22:55 pO2 172 mm/Hg (80-100) H 06/05/17 22:55 HCO3 26.2 mmol/L (21-28) 06/05/17 22:55 ABG pH 7.36 (7.35-7.45) 06/05/17 22:55 ABG Total CO2 29.2 mmol/L (22-28) H 06/05/17 22:55 ABG O2 Saturation 99.4 % (95-98) H 06/05/17 22:55 ABG Base Excess 1.5 mmol/L (-2.0-3.0) 06/05/17 22:55 Srinivas Test Pos 06/05/17 22:55 ABG Potassium 4.3 mmol/L (3.6-5.2) 06/05/17 22:55 A-a O2 Difference 195.0 mm/Hg 06/05/17 22:55 Respiratory Index 1.1 06/05/17 22:55 Sodium 136.0 mmol/l (132-148) 06/05/17 22:55 Chloride 105.0 mmol/L (98-107) 06/05/17 22:55 Glucose 112 mg/dl (65-105) H 06/05/17 22:55 Lactate 1.2 mmol/L (0.7-2.1) 06/05/17 22:55 Vent Mode Bipap 06/05/17 22:55 Mechanical Rate 12 06/05/17 22:55 FiO2 60.0 % 06/05/17 22:55 Inspiratory BiPAP 12 06/05/17 22:55 Expiratory BiPAP 6 06/05/17 22:55 Sodium 137 mmol/L (132-148) 06/11/17 07:43 Potassium 3.9 mmol/L (3.6-5.2) 06/11/17 07:43 Chloride 95 mmol/L (98-107) L 06/11/17 07:43 Carbon Dioxide 30 mmol/L (22-30) 06/11/17 07:43 Anion Gap 16 (10-20) 06/11/17 07:43 BUN 33 mg/dL (7-17) H 06/11/17 07:43 Creatinine 1.5 mg/dL (0.7-1.2) H 06/11/17 07:43 Est GFR ( Amer) 41 06/11/17 07:43 Est GFR (Non-Af Amer) 34 06/11/17 07:43 POC Glucose (mg/dL) 85 mg/dL (65-110) 06/07/17 06:27 Random Glucose 94 mg/dL (65-105) 06/11/17 07:43 Calcium 8.6 mg/dl (8.6-10.4) 06/11/17 07:43 Magnesium 2.0 mg/dL (1.6-2.3) 06/06/17 07:55 Total Bilirubin 0.3 mg/dL (0.2-1.3) 06/11/17 07:43 AST 27 U/L (14-36) 06/11/17 07:43 ALT 21 U/L (9-52) 06/11/17 07:43 Alkaline Phosphatase 85 U/L (38-126) 06/11/17 07:43 Troponin I < 0.0120 ng/mL (0.00-0.120) 06/05/17 22:49 NT-Pro-B Natriuret Pep 1080 pg/mL (0-900) H 06/05/17 22:49 Total Protein 6.7 g/dL (6.3-8.3) 06/11/17 07:43 Albumin 3.7 g/dL (3.5-5.0) 06/11/17 07:43 Globulin 3.0 gm/dL (2.2-3.9) 06/11/17 07:43 Albumin/Globulin Ratio 1.2 (1.0-2.1) 06/11/17 07:43 Vitamin B12 838 pg/mL (239-931) 06/06/17 07:55 Folate 14.0 ng/mL 06/06/17 07:55 Procalcitonin < 0.05 NG/ML (0.19-0.49) L 06/06/17 16:53 TSH 3rd Generation 2.66 mIU/L (0.46-4.68) 06/06/17 07:55 Arterial Blood Potassium 4.3 mmol/L (3.6-5.2) 06/05/17 22:55 Urine Color Yellow (YELLOW) 06/05/17 23:20 Urine Clarity Clear (Clear) 06/05/17 23:20 Urine pH 6.0 (5.0-8.0) 06/05/17 23:20 Ur Specific [place] 1.010 (1.003-1.030) 06/05/17 23:20 Urine Protein Negative mg/dL (NEGATIVE) 06/05/17 23:20 Urine Glucose (UA) Normal mg/dL (Normal) 06/05/17 23:20 Urine Ketones Negative mg/dL (NEGATIVE) 06/05/17 23:20 Urine Blood Trace (NEGATIVE) H 06/05/17 23:20 Urine Nitrate Negative (NEGATIVE) 06/05/17 23:20 Urine Bilirubin Negative (NEGATIVE) 06/05/17 23:20 Urine Urobilinogen Normal mg/dL (0.2-1.0) 06/05/17 23:20 Ur Leukocyte Esterase Neg Ray/uL (Negative) 06/05/17 23:20 Urine WBC (Auto) < 1 /hpf (0-5) 06/05/17 23:20 Urine RBC (Auto) 3 /hpf (0-3) 06/05/17 23:20 Urine Bacteria Rare (<OCC) 06/05/17 23:20 - Hospital Course Hospital Course: Pt is stable for discharge seen & evaluated Patient's breathing is improved and she is now off BiPAP. No acute events overnight reported. Patient remains afebrile. Assessment and Plan: 1 hYPOXIA - CXR 06/05: few patchy bibasilar airspace nodular densities, mild venous congestion, cardiomegaly - ABG 06/05: 7.36/ 49/ 172 on FiO2 60% - patient is off BiPAP and breathing much comfortably 2. Suspicion of aspiration pneumonia - CXR 06/05: few patchy bibasilar airspace nodular densities - PT/OT swallow evaluation - consider nectar thickened liquids Discharge Exam - Head Exam Head Exam: NORMAL INSPECTION Discharge Plan - Discharge Medications Prescriptions: Donepezil HCl [Aricept] 5 mg PO DAILY #30 tablet Donepezil [Aricept] 5 mg PO HS #30 tab Glycerin/Propylene Glycol [Artificial Tears Drops] 1 drop OU QID PRN #1 bottle PRN Reason: Dry Eyes LORazepam [Ativan] 1 mg PO BID PRN #20 tab PRN Reason: Anxiety Atorvastatin Calcium 40 mg PO HS #30 tablet Docusate Sodium 100 mg PO BID #60 capsule Aspirin [Ecotrin] 81 mg PO DAILY #30 tabec levETIRAcetam [Keppra] 1,000 mg PO BID #120 tab Lamotrigine 100 mg PO BID #60 tablet Furosemide [Lasix] 40 mg PO DAILY #30 tablet Losartan Potassium 25 mg PO DAILY #30 tablet PARoxetine [Paxil] 30 mg PO DAILY #30 tab Pantoprazole [Protonix EC Tab] 40 mg PO DAILY #30 ect QUEtiapine [Seroquel] 25 mg PO DAILY #30 tab QUEtiapine [SEROquel] 50 mg PO HS #30 tab Levothyroxine [Synthroid] 75 mcg PO DAILY #30 tab Azithromycin [Zithromax] 500 mg PO DAILY #5 tab - Follow Up Plan Condition: FAIR Disposition: HOME/ ROUTINE Instructions: Polyethylene Glycol 3350, Azithromycin (Systemic), Seizures, Adult (DC), Dementia (DC), Aspirin, Atorvastatin, Docusate, Donepezil, Furosemide, Lamotrigine, Levetiracetam, Levothyroxine, Lorazepam, Losartan, Paroxetine, Quetiapine, Dyspnea (GEN) Additional Instructions: -FOLLOW UP WITH YOUR PRIMARY DOCTOR, DR. JC, IN THE OFFICE WITHIN 5-7 DAYS--- CALL THE OFFICE TOMORROW TO MAKE YOUR APPOINTMENT. -FOLLOW UP WITH YOUR NEUROLOGIST IN THE OFFICE WITHIN 7-10 DAYS---CALL THE OFFICE TOMORROW TO MAKE YOUR APPOINTMENT. -CONTINUE HOME MEDICATIONS FOLLOWS: -ASPIRIN 81 MG (1 TABLET) ONCE A DAY -ATORVASTATIN 40MG (1 TABLET) AT BEDTIME -COLACE 100 MG (1 CAPSULE) TWICE A DAY (MORNING AND EVENING) -DONEZEPIL 5MG (1 TABLET) ONCE A DAY (MORNING) THEN TAKE 5 MG (1 TABLET) AT BEDTIME -LASIX (WATER PILL; 1 TABLET) ONCE A DAY -EYE DROPS NEEDED FOR DRY EYES -LAMOTRIGINE 100 MG (1 TABLET) ONCE A DAY -SYNTHROID 75 MCG (1 TABLET) IN THE MORNING BEFORE BREAKFAST -KEPPRA 1,000 MG (TAKE 2 TABLETS OF 500 MG) TWICE A DAY (MORNING AND EVENING) -ATIVAN 1 MG (1 TABLET) TWICE A DAY ONLY IF NEEDED FOR ANXIETY -LOSARTAN 25 MG (1 TABLET) ONCE A DAY -PANTOPRAZOLE 40 MG ONCE A DAY -PAROXETINE 30MG (1 TABLET) ONCE A DAY -SEROQUEL 25 MG (TAKE 1 TABLET) ONCE IN THE MORNING AND THEN TAKE 2 TABLETS AT BEDTIME. -CONTINUE ANTIBIOTIC PRESCRIBED: ZITHROMAX 500 MG BY MOUTH ONCE A DAY FOR 5 DAYS. -HOME PHYSICAL THERAPY HAS BEEN ARRANGED FOR YOU. -FOR FURTHER QUESTIONS OR CONCERNS, CONTACT DR. CHU OR DR. JC. Referrals: Jeromy Miguel MD [Staff Provider] - Mychal Ricci MD [Staff Provider] - Viraj Dinero MD [Staff Provider] - Agustín Chu MD [Staff Provider] - Thomas Campos MD [Staff Provider] -
== END 2017-06-11 14:43 | disposition home or self-care (01) | DRG 100 ==
LOC: C.ER 22:14 → C.5S 06-06 01:01 → C.6T 06-09 16:47 → C.5S 06-09 20:07
PROVIDERS: ADMIT Internal Medicine; ATTEND Internal Medicine
PROC: 5A09457 Assistance with Respiratory Ventilation, 24-96 Consecutive Hours, Continuous Positive Airway Pressure (ICD-10-PCS; principal; 2017-06-06)
DX: G40.409 Other generalized epilepsy and epileptic syndromes, not intractable, without status epilepticus (principal); J96.01 Acute respiratory failure with hypoxia; G92 Toxic encephalopathy; T42.6X5A Adverse effect of other antiepileptic and sedative-hypnotic drugs, initial encounter; J69.0 Pneumonitis due to inhalation of food and vomit; I50.30 Unspecified diastolic (congestive) heart failure; G93.81 Temporal sclerosis; I11.0 Hypertensive heart disease with heart failure; Z79.82 Long term (current) use of aspirin; Z86.73 Personal history of transient ischemic attack (TIA), and cerebral infarction without residual deficits; F06.30 Mood disorder due to known physiological condition, unspecified; F41.9 Anxiety disorder, unspecified; I45.81 Long QT syndrome; R00.1 Bradycardia, unspecified; D64.9 Anemia, unspecified; E03.9 Hypothyroidism, unspecified